=== PATIENT | female | born 1990 | race Caucasian/White ===

== ENCOUNTER → 2018-01-07 14:03 | Outpatient (CLI) | payer MEDICAID, SELFPAY ==
[2018-01-15 11:48] LABS: HPV Reflexed? NOT INDICATED
== END ==
PROVIDERS: Visit Provider Obstetrics & Gynecology
DX: R87.610 Atypical squamous cells of undetermined significance on cytologic smear of cervix (ASC-US) (principal)
CPT/HCPCS: 88175; G0145

== ENCOUNTER → 2018-01-30 10:19 | Outpatient (CLI) | payer MEDICAID, SELFPAY ==
--- NOTE | 2018-01-30 09:30 | CER_PTH ---
PATIENT: NICOLAS DUTTA LOC: [facility] U#:[id number] AGE/SX: 35/F ROOM: RE01/30/[address]: Dr. Julia Masters MD : 1990 BED: DIS: SPEC #: [id number] RECD: 01/30/18 10:40 STATUS: MAGDA ARMAAN #: [id number] CHARLES: 01/30/18 09:[address]: Julia Masters DEPT: SURGICAL PATHOLOGY RECD BY: Vito Tomas Tissues: A - Uterine cervix, NOS Procedures: Surgery Specimen Level IV HEADER OPERATION: Colposcopy PRE-OP DIAGNOSIS: LGSIL pap, LMP 01/09 TISSUE SUBMITTED: ECC MICROSCOPIC DIAGNOSIS ECC: Scant minute fragments of benign endocervical epithelium and mucous, negative for dysplasia. SJ:duy 01/31/18 COMMENT Clinical correlation and appropriate follow up are necessary. MICROSCOPIC DESCRIPTION Slides are reviewed. GROSS DESCRIPTION Received in fixative is one container labeled with the patient's name and designated ECC. The specimen consists of multiple irregular fragments of bennett mucoid tissue that in aggregate measure 0.5 x 0.5 x <0.1 cm. The specimen is totally submitted in one cassette. / SJ:rg 01/30/18 TC:4 CPT: 16087
== END ==
PROVIDERS: Visit Provider Obstetrics & Gynecology
DX: R87.612 Low grade squamous intraepithelial lesion on cytologic smear of cervix (LGSIL) (principal)
CPT/HCPCS: 88305

== ENCOUNTER → 2018-07-10 08:45 | Outpatient (CLI) | payer MEDICAID, SELFPAY ==
--- NOTE | 2018-07-10 09:00 | RAD_ITS ---
STUDY: AIR-CONTRAST UPPER GI SERIES. REASON FOR EXAM: Female, 27 years old. Worsening nausea. FLUOROSCOPY TIME (if supplied): (0:48) minutes/seconds. 23 spot images were obtained. TECHNIQUE: The patient ingested barium. Multiple imaging esophagus, stomach and duodenum were obtained. COMPARISON: None. FINDINGS: The esophagus is unremarkable. There is no evidence of obstruction. No mass lesion is seen. There is no evidence of gastroesophageal reflux. The stomach and duodenum are unremarkable. No evidence of ulceration. No mass lesion is present. RAD/Upper GI Series Only IMPRESSION: Unremarkable upper GI series. Electronically Signed: Иван Bates MD at 8:04 EDT Tel [phone], Service support ,
== END ==
PROVIDERS: Family Provider Family Medicine; PCP Family Medicine; Visit Provider Nurse Practitioner Adult Health
DX: R10.13 Epigastric pain (principal); R11.0 Nausea
CPT/HCPCS: 74246

== ENCOUNTER 2018-08-04 11:43 | Day surgery (SDC) | payer MEDICAID, SELFPAY ==
--- NOTE | 2018-08-04 | EGD_PTH ---
PATIENT: NICOLAS DUTTA LOC: EN U#:[id number] AGE/SX: 27/F ROOM: RE08/04/[address]: Dr. Zita Bennett MD : 1990 BED: DIS: 08/04/2018 SPEC #: [id number] RECD: 08/04/18 14:26 STATUS: MAGDA REJohnathan #: [id number] CHARLES: 08/04/18 00:[address]: Zita Bennett DEPT: SURGICAL PATHOLOGY RECD BY: mC Chavarria ENTERED: 08/04/18 14:27 SP TYPE: EGD BIOPSY OTHR DR: Rose Mary Brown DO Tissues: A - Duodenum, NOS B - Gastric mucous membrane C - Gastric mucous membrane Procedures: Special Stain Group II Surgery Specimen Level IV Alcian Blue/PAS (control) HEADER OPERATION: EGD ([facility] [place]) PRE-OP DIAGNOSIS: Epigastric pain TISSUE SUBMITTED: A - Biopsy of second portion of duodenum, B - Antrum biopsy for H. pylori and path, C - GE junction biopsy MICROSCOPIC DIAGNOSIS A. Second portion of duodenum, biopsy: Fragments of small intestinal mucosa, no pathologic diagnosis. B. Antrum, biopsy: Mild gastritis. See microscopic description and comment. C. GE junction, biopsy: A fragment of gastroesophageal mucosa with chronic inflammation. Intestinal metaplasia (goblet cell metaplasia) is not identified. See comment. SJ:rg 08/05/18 COMMENT B. The results of immunohistochemistry for Helicobacter pylori will be reported separately ([id number]). C. Alcian blue/PAS stain with matched control is used in the evaluation of the specimen. MICROSCOPIC DESCRIPTION Slides are reviewed. B. The specimen shows fragments of gastric mucosa with chronic inflammatory cell infiltrates in the lamina propria consisting of lymphocytes and plasma cells, consistent with mild chronic gastritis. GROSS DESCRIPTION A - Received in fixative is one container labeled with the patient's name and designated biopsy of second portion of duodenum. The specimen consists of multiple irregular fragments of light bennett soft tissue that in aggregate measure 1 x 0.3 x 0.1 cm. The specimen is totally submitted in one cassette. B - Received in fixative is one container labeled with the patient's name and designated antrum biopsy for H. pylori and path. The specimen consists of two irregular fragments of light bennett soft tissue that in aggregate measure 0.6 x 0.3 x 0.1 cm. The specimen is totally submitted in one cassette. C - Received in fixative is one container labeled with the patient's name and designated GE junction biopsy. The specimen consists of one irregular fragment of light bennett soft tissue that measures 0.4 x 0.2 x 0.1 cm. The specimen is totally submitted in one cassette. / SJ:rg 08/04/18 TC:5 CPT: 22153 x3, 57165
--- NOTE | 2018-08-04 | IMM_PTH ---
PATIENT: NICOLAS DUTTA LOC: [facility] U#:[id number] AGE/SX: 27/F ROOM: RE08/04/[address]: Dr. Zita Bnenett MD : 1990 BED: DIS: 08/04/2018 SPEC #: [id number] RECD: 08/04/18 14:05 STATUS: MAGDA REQ #: [id number] CHARLES: 08/04/18 00:[address]: Zita Bennett DEPT: IMMUNOHISTOCHEMISTRY RECD BY: Zaira Garcia ENTERED: 08/04/18 14:05 SP TYPE: IMMUNO OTHR DR: Rose Mary Brown DO Tissues: B - Stomach, NOS Procedures: H Pylori (initial) PHYSICIAN & INSTITUTION [place] [id number] SPECIMEN INFORMATION: Tissue Source: B - Antrum biopsy Clinical Info: Epigastric pain Specimen Number: [id number] CPT code: 53688 METHODOLOGY: Deparaffinized sections of prefer/formalin-fixed tissue or PAP/DQ stained slides are incubated with monoclonal/polyclonal antibodies/oligonucleotide probes. Localization is made via biotin free immunoperoxidase method. Appropriate controls are performed and reacted as expected. Results on target cell population are indicated in the following table: RESULTS: ANTIBODY / CLONE RESULT Block B H Pylori (polyclonal) negative These tests were developed and their performance characteristics determined by [facility]. They may not have been cleared or approved by the [place]. Food and Drug Administration. The FDA has determined that such clearance or approval is not necessary. INTERPRETATION: B. Antrum, biopsy: Negative for Helicobacter pylori organisms. SJ:duy 08/05/18
[2018-08-04 12:28] VITALS: BP 106/78; PULSE 96; RESP 14; TEMP 36.8; O2SAT 100; BMI 19.8
[2018-08-04 12:33] LABS: Internal QC Validated? YES +Cl - CLEAR BKGD; Pregnancy, Urine Negative Negative
[2018-08-04 13:15] VITALS: BP 106/78; BP 92/53; PULSE 75; RESP 16; TEMP 36.2; O2SAT 96
[2018-08-04 13:20] VITALS: BP 106/78; BP 96/84; PULSE 85; RESP 16; O2SAT 99
--- NOTE | 2018-08-04 13:23 | PCM.OPRPT ---
Report of Operation Date of Procedure: 08/04/18 Pre-Operative Diagnosis: epigastric abdominal pain Post-Operative Diagnosis: no ulcers/masses noted Surgery/Procedure Performed:: esophagogastroduodenoscopy with biopsies Description of Surgical Findings:: no ulcers or masses noted in the stomach, first and second portion of the duodenum, esophagus Type of Anesthesia:: MAC Anesthesiologist: Ilya Farnsworth Specimen's removed: mucosal biopsies of the following: second portion of the duodenum and antrum of stomach, and GE junction Estimated Blood Loss (mL): minimal Fluids Replaced: see anesthesia note Description of Procedure: After informed consent was given, the patient was brought to the endoscopy suite and placed in the upright sitting position. Appropriate time out protocol was followed. Appropriate cardiac, blood pressure, and pulse oximetry monitoring was placed. After stable vital signs were noted, the patient was given intravenous conscious sedation. The posterior pharynx was sprayed with lidocaine spray times two and a bite block was placed. The patient was then placed in the left lateral decubitis position. The upper endoscope was lubricated and inserted into the patient?s mouth and then carefully placed into the patient?s throat. The patient was asked to swallow and the endoscope was then easily advanced into the patient?s esophagus. The endoscope was further advanced down into the patient?s stomach, then past the pylorus, then past the duodenal bulb and then to the second portion of the duodenum. There were no lesions noted in the duodenum. The first and second portion of the duodenum was evaluated. Because of the patient's complaint, mucosal biopsies of the second portion of the duodenum were taken with cold grasper forceps. The endoscope was then retracted back into the stomach. Cold grasper forceps were used to take biopsies of the antrum mucosa. A retroflex view of the stomach revealed no evidence of any masses. No ulcers, no strictures, no suspicious lesions were noted. The patient did have a small hiatal hernia. The endoscope was retracted into the esophagus. The gastroesophageal junction appeared minimally irregular - cold grasper forceps were used to take mucosal biopsies of the GE junction. The remainder of the esophagus was normal. The upper endoscope was removed intact. Patient tolerated procedure well. - Complications none noted
[2018-08-04 13:25] VITALS: BP 106/78; BP 89/54; PULSE 75; RESP 16; O2SAT 100
[2018-08-04 13:26] VITALS: BP 106/78; BP 99/66; PULSE 65; RESP 16; TEMP 36.3; O2SAT 99
[2018-08-04 13:53] VITALS: BP 106/78
== END 2018-08-04 13:56 | disposition home or self-care (01) ==
LOC: EN 11:44 → AC 12:20
PROVIDERS: Family Provider Family Medicine; PCP Family Medicine; Referring Provider Surgery; Visit Provider Surgery
PROC: 0DJ08ZZ Inspection of Upper Intestinal Tract, Via Natural or Artificial Opening Endoscopic (ICD-10-PCS; CPT 43235; principal; 2018-08-04 12:40)
DX: K29.70 Gastritis, unspecified, without bleeding (principal); K21.0 Gastro-esophageal reflux disease with esophagitis; K44.9 Diaphragmatic hernia without obstruction or gangrene; R11.0 Nausea; J45.909 Unspecified asthma, uncomplicated; Z79.899 Other long term (current) drug therapy; F17.200 Nicotine dependence, unspecified, uncomplicated
CPT/HCPCS: 43235; 81025; 88305; 88313; 88342; J7120; J2405

== ENCOUNTER → 2018-08-12 15:26 | Outpatient (CLI) | payer MEDICAID, SELFPAY ==
[2018-08-12 17:52] LABS: Chlamydia Trachomatis by PCR Negative (Negative); Neisserai gonorrhoeae by PCR Negative (Negative); Probe Check PASS; Sample Adequacy Control PASS; Specimen Processing Control PASS
[2018-08-19 11:55] LABS: HPV Reflexed? NOT INDICATED
== END ==
PROVIDERS: Visit Provider Obstetrics & Gynecology
DX: Z12.4 Encounter for screening for malignant neoplasm of cervix (principal); Z11.3 Encounter for screening for infections with a predominantly sexual mode of transmission
CPT/HCPCS: 87491; 87591; 88175; G0145

== ENCOUNTER → 2018-09-17 16:21 | Outpatient (CLI) | payer MEDICAID, SELFPAY ==
[2018-09-17 17:57] LABS: hCG Titer Quant., Serum 979 mIU/mL (<9 non-preg)
--- OUTSIDE RECORDS SUMMARY | 2018-11-13 02:37 | XMS RPT_ITS ---
:1990 Author Organization OHIP Care Team Providers Name Role Phone KAREN BROWN DO Attending Unavailable KAREN BROWN DO Primary Care Unavailable THORCARRIE, NORMA (FASHION COORDINATOR) Attending Unavailable THORPE, NORMA (FASHION COORDINATOR) Attending Unavailable THORPE, NORMA (FASHION COORDINATOR) Referring Unavailable THORCARRIE, NORMA (FASHION COORDINATOR) Referring Unavailable Julia Masters Attending Unavailable Julia Masters Attending Unavailable NORMA CARTY Attending Unavailable CHARLEEN NORMA Referring Unavailable Karen Brown Primary Care Unavailable Zita Bennett Attending Unavailable Zita Bennett Referring Unavailable Karen Brown Primary Care Unavailable Julia Masters Attending Unavailable Julia Masters Attending Unavailable Julia Masters Attending Unavailable PROBLEMS PROBLEMS DATE TYPE CONDITION / CODE ATTENDING STATUS SOURCE 2018 Unknown Z12.4 - Encounter Julia Masters Active [facility] for screening for Community malignant neoplasm [facility] / Repository Z12.4(ICD-10) 2018 Unknown Z11.3 - Encounter Julia Masters Active [facility] for screening for Community infections with a Hospital predominantly Repository sexual mode of transmission / Z11.3(ICD-10) 01/17/2015 Active Nausea / NA Active [facility] R11.0(ICD-10) [facility] [place] Repository 07/17/2018 Active Epigastric pain / NA Active [facility] R10.13(ICD-10) [facility] [place] Repository 07/17/2018 Active Abdominal NA Active [facility] distension [facility] (gaseous) / [place] R14.0(ICD-10) Repository 01/29/2018 Unknown R87.610 - Atypical Julia Masters Active [facility] squamous cells of Community undetermined Hospital significance on Repository cytologic smear of cervix (ASC-US) / R87.610(ICD-10) 11/12/2017 Admitting Gastro-esophageal BROWN DO, Active [facility] Diagnosis reflux disease KAREN [facility] without esophagitis Repository / K21.9(ICD-10) PROCEDURES PROCEDURES No Procedure Records FoundRESULTS RESULTS [facility] Observed: 09/30/2018 Status: COMPLETED Source: [place] 12:00 AM [facility] REPOSITORY Letter Text Department of Gastroenterology [address] [place], [place] [address] 09/30/2018 Nicolas Dougherty [address] [facility] [address] [facility] [address] Dear Nicolas, We are unable to reach you by phone, so mailing a letter RE: received a medication refill request on Ondansetron from your pharmacy. This has been denied. You will need to be seen in if still experiencing nausea. Call [phone] to schedule apt with LYSSA Martinez. Sincerely, LYSSA Joyner/Chelsea Gannon LPN HCG TITER QUANT., Collected: 09/19/2018 Status: F Source: [place] 9:19 AM [facility] [place] TYPE CODE TESTS RESULT OUT OF RANGE REFERENCE UNITS LAB L700.8000 <9 non-preg mIU/mL High HCG 2550 QUANT. Performed By: #### L700.8000 #### [facility] [address] [place], [address] HCG TITER QUANT., Collected: 09/17/2018 Status: F Source: [place] 4:27 PM [facility] [place] TYPE CODE TESTS RESULT OUT OF RANGE REFERENCE UNITS LAB L700.8000 <9 non-preg mIU/mL High HCG 979 QUANT. Performed By: #### L700.8000 #### [facility] [address] [place], [address] CT/NG [facility] BY PCR Collected: 2018 Status: F Source: [place] 2:30 PM [facility] [place] TYPE CODE TESTS RESULT OUT OF RANGE REFERENCE UNITS LAB L8200.2100 Negative Normal Chlam Negative Trac PCR LAB L8200.2200 Negative Normal NG by Negative PCR Performed By: #### L8200.2000 #### [facility] [address] 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 of containers..01 ThinPrep Vial TYPE CODE TESTS RESULT OUT OF REFERENCE UNITS RANGE LAB L7400.0800 . High DIAGN Comment Result Comment: EPITHELIAL CELL ABNORMALITY. LOW-GRADE SQUAMOUS INTRAEPITHELIAL LESION (LGSIL); MILD DYSPLASIA IS PRESENT. LAB L7400.0900 . Normal ADEQ Comment Result Comment: Satisfactory for evaluation. Endocervical and/or squamous metaplastic cells (endocervical component) are present. LAB L7400.1400 . Normal PERFORM Comment Result Comment: Mirtha Mcfarlane, Fiberglass Bonding Machine Tender (ASCP) LAB L7400.1700 . Normal SIGN Comment Result Comment: Jad Pavon MD (Charles), Pathologist LAB L7400.1720 . Normal Path prov. Comment ICD9 Result Comment: R87.612 LAB L7400.2575 . Normal TEST METHOD Comment Result Comment: This liquid based ThinPrep(R) pap test was screened with the use of an image guided system. LAB L7400.2600 . Normal . COMM LAB L7400.2700 . Normal PAPSMR Comment Result Comment: The Pap smear is a screening test designed to aid in the detection of premalignant and malignant conditions of the uterine cervix. It is not a diagnostic procedure and should not be used as the sole means of detecting cervical cancer. Both false-positive and false-negative reports do occur. LAB L7400.2800 . Normal HPV RFLX Comment Result Comment: The HPV DNA reflex criteria were not met with this specimen result therefore, no HPV testing was performed. Performed at: [facility] - [facility] [place] [id number] Refining Machine Operator: Tressa Cronin MD, Phone: [phone] Performed at: [facility] [id number] Refining Machine Operator: Mary Phillips MD, Phone: [phone] Performed By: #### L7400.0350 #### [facility] (refer to report for specific site) refer to report for address and phone number OPERATIVE REPORT Observed: 08/10/2018 Status: F Source: [place] 9:27 AM [facility] Medical Records Department [address] [place] [address] Operative Report 08/04/18 1323 MR#: [id number] Acct: [id number] Name: TYRONNICOLAS WALLACE Jo Ann Rep #: [id number] : 1990 27 From: Zita Bennett MD PCP: Karen Brown DO Status: [facility] Y Location: EN Report of Operation Date of Procedure: 08/04/18 Pre-Operative Diagnosis: epigastric abdominal pain Post-Operative Diagnosis: no ulcers/masses noted Surgery/Procedure Performed:: esophagogastroduodenoscopy with biopsies Description of Surgical Findings:: no ulcers or masses noted in the stomach, first and second portion of the duodenum, esophagus Type of Anesthesia:: MAC Anesthesiologist: Ilya Farnsworth Specimen's removed: mucosal biopsies of the following: second portion of the duodenum and antrum of stomach, and GE junction Estimated Blood Loss (mL): minimal Fluids Replaced: see anesthesia note Description of Procedure: After informed consent was given, the patient was brought to the endoscopy suite and placed in the upright sitting position. Appropriate time out protocol was followed. Appropriate cardiac, blood pressure, and pulse oximetry monitoring was placed. After stable vital signs were noted, the patient was given intravenous conscious sedation. The posterior pharynx was sprayed with lidocaine spray times two and a bite block was placed. The patient was then placed in the left lateral decubitis position. The upper endoscope was lubricated and inserted into the patient s mouth and then carefully placed into the patient s throat. The patient was asked to swallow and the endoscope was then easily advanced into the patient s esophagus. The endoscope was further advanced down into the patient s stomach, then past the pylorus, then past the duodenal bulb and then to the second portion of the duodenum. There were no lesions noted in the duodenum. The first and second portion of the duodenum was evaluated. Because of the patient's complaint, mucosal biopsies of the second portion of the duodenum were taken with cold grasper forceps. The endoscope was then retracted back into the stomach. Cold grasper forceps were used to take biopsies of the antrum mucosa. A retroflex view of the stomach revealed no evidence of any masses. No ulcers, no strictures, no suspicious lesions were noted. The patient did have a small hiatal hernia. The endoscope was retracted into the esophagus. The gastroesophageal junction appeared minimally irregular - cold grasper forceps were used to take mucosal biopsies of the GE junction. The remainder of the esophagus was normal. The upper endoscope was removed intact. Patient tolerated procedure well. - Complications none noted 08/10/18 0927 <Electronically signed by Zita Bennett MD> Date Zita Bennett MD CC: Karen Brown DO; Zita Bennett MD Signed ,URINE Collected: 08/04/2018 Status: F Source: [place] 12:22 PM [facility] [place] TYPE CODE TESTS RESULT OUT OF REFERENCE UNITS RANGE LAB L400.8000 Negative Normal HCGUQUAL Negative Result Comment: Very dilute urine specimens, as indicated by a low specific gravity, may not contain employee representative levels of hCG. If is still suspected, a first morning urine specimen should be collected 48 hours later and tested. Performed By: #### L400.7600 #### [facility] [address] [place] [address]. [place], [place], [address] IMMUNOHISTOCHEMISTRY Observed: 08/04/2018 Status: F Source: [place] 12:00 AM [facility] [place] Patient: NICOLAS DOUGHERTY N : 1990 () Acct Num: [id number] Phys: Zita Bennett MD Unit Num: [id number] Loc: EN Specimen: [id number] Received: 08/04/181404 Spec Type: IMMUNO TISSUES 1 TISSUES: B. Stomach, NOS SPECIMEN INFORMATION: Tissue Source: B - Antrum biopsy Clinical Info: Epigastric pain Specimen Number: [id number] CPT code: 72134 METHODOLOGY: Deparaffinized sections of prefer/formalin-fixed tissue or PAP/DQ stained slides are incubated with monoclonal/polyclonal antibodies/oligonucleotide probes. Localization is made via biotin free immunoperoxidase method. Appropriate controls are performed and reacted as expected. Results on target cell population are indicated in the following table: RESULTS: ANTIBODY / CLONE RESULT Block B H Pylori (polyclonal) negative These tests were developed and their performance characteristics determined by [facility]. They may not have been cleared or approved by the U.S. Food and Drug Administration. The FDA has determined that such clearance or approval is not necessary. INTERPRETATION: B. Antrum, biopsy: Negative for Helicobacter pylori organisms. SJ:duy 08/05/18 PHYSICIAN AND INSTITUTION [address] [address] Signed Rene Sabillon 08/05/18 <signature on file> Performed By: #### PIMM #### [facility] [address] [place] [address]. [place], [place], [id number] EGD ([facility]) Observed: 08/04/2018 Status: F Source: [place] 12:00 AM [facility] [place] Patient: NICOLAS DOUGHERTY : 1990 () Acct Num: [id number] Phys: Donald ARREDONDO,Zita Unit Num: [id number] Loc: EN Specimen: [id number] Received: 08/04/181425 Spec Type: EGD BIOPSY TISSUES 1 TISSUES: A. Duodenum, NOS B. Gastric mucous membrane C. Gastric mucous membrane COMMENT B. The results of immunohistochemistry for Helicobacter pylori will be reported separately ([id number]). C. Alcian blue/PAS stain with matched control is used in the evaluation of the specimen. GROSS DESCRIPTION A - Received in fixative is one container labeled with the patient's name and designated biopsy of second portion of duodenum. The specimen consists of multiple irregular fragments of light bennett soft tissue that in aggregate measure 1 x 0.3 x 0.1 cm. The specimen is totally submitted in one cassette. B - Received in fixative is one container labeled with the patient's name and designated antrum biopsy for H. pylori and path. The specimen consists of two irregular fragments of light bennett soft tissue that in aggregate measure 0.6 x 0.3 x 0.1 cm. The specimen is totally submitted in one cassette. C - Received in fixative is one container labeled with the patient's name and designated GE junction biopsy. The specimen consists of one irregular fragment of light bennett soft tissue that measures 0.4 x 0.2 x 0.1 cm. The specimen is totally submitted in one cassette. / ABIDA:duy 08/04/18 TC:5 CPT: 94509 x3, 36062 HEADER OPERATION: EGD ([facility]) PRE-OP DIAGNOSIS: Epigastric pain TISSUE SUBMITTED: A - Biopsy of second portion of duodenum, B - Antrum biopsy for H. pylori and path, C - GE junction biopsy MICROSCOPIC DESCRIPTION Slides are reviewed. B. The specimen shows fragments of gastric mucosa with chronic inflammatory cell infiltrates in the lamina propria consisting of lymphocytes and plasma cells, consistent with mild chronic gastritis. MICROSCOPIC DIAGNOSIS A. Second portion of duodenum, biopsy: Fragments of small intestinal mucosa, no pathologic diagnosis. B. Antrum, biopsy: Mild gastritis. See microscopic description and comment. C. GE junction, biopsy: A fragment of gastroesophageal mucosa with chronic inflammation. Intestinal metaplasia (goblet cell metaplasia) is not identified. See comment. ABIDA:duy 08/05/18 Signed Rene Sabillon 08/05/18 <signature on file> Performed By: #### PEGD #### [facility] [address] [place], [address] CBC Collected: 07/17/2018 Status: F Source: [place] 9:01 AM [facility] REPOSITORY TYPE CODE TESTS RESULT OUT OF REFERENCE UNITS RANGE LAB WBC 3.70-11.00 k/uL WBC 6.75 LAB RBC 3.90-5.20 m/uL RBC 4.55 LAB HGB 11.5-15.5 g/dL Hemoglobin 14.2 LAB HCT 36.0-46.0 % Hematocrit 43.2 LAB MCV 80.0-100.0 fL MCV 94.9 LAB MCH 26.0-34.0 pG MCH 31.2 LAB MCHC 30.5-36.0 g/dL MCHC 32.9 LAB RDWCV 11.5-15.0 % RDW-CV 13.0 LAB PLTCT 150-400 k/uL Platelet Count 352 LAB MPV 9.0-12.7 fL MPV 9.8 LAB ABSNUC <0.01 k/uL Absolute nRBC <0.01 Performed By: #### CBC, CMP, LIPA #### [facility] [address] [place], [place] [address] COMP METABOLIC PANEL Collected: 07/17/2018 Status: F Source: [place] 9:01 AM [facility] REPOSITORY TYPE CODE TESTS RESULT OUT OF REFERENCE UNITS RANGE LAB TP 6.3-8.0 g/dL Protein, Total 6.4 LAB ALB 3.9-4.9 g/dL Albumin 4.4 LAB CA 8.5-10.2 mg/dL Calcium, Total 9.2 LAB TBIL 0.2-1.3 mg/dL Bilirubin, Total 0.6 LAB ALKP 34-123 U/L Alkaline Phosphatase 66 LAB AST 13-35 U/L AST 15 LAB GLU 74-99 mg/dL Low Glucose 71 Result Comment: The [place] [employer] (ADA) provides guidance for cutoff values for fasting glucose and random glucose. The ADA defines fasting as no caloric intake for at least 8 hours. Fas ting plasma glucose results between 100 to 125 mg/dL indicate increased risk for diabetes (prediabetes). Fasting plasma glucose results greater than or equal to 126 mg/dL meet the criteria for diagnosis of diabetes. In the absence of unequivocal hyperglycemia, results should be confirmed by repeat testing. In a patient with classic symptoms of hyperglycemia or hyperglycemic crisis, random plasma glucose results greater than or equal to 200 mg/dL meet the criteria for diagnosis of diabetes. Reference: Standards of Medical Care in Diabetes 2016, [place] [employer]. Diabetes Care. 2016.39(Suppl 1). LAB BUN 7-21 mg/dL BUN 13 LAB CRET 0.58-0.96 mg/dL Creatinine 0.80 LAB NA 136-144 mmol/L Sodium 139 LAB K 3.7-5.1 mmol/L Potassium 4.3 LAB CL 97-105 mmol/L Chloride 101 LAB CO2 22-30 mmol/L CO2 24 LAB AGAP 9-18 mmol/L Anion Gap 14 LAB ALT 7-38 U/L ALT 8 LAB GFRAA eGFR- Amer. >60 LAB GFRNAA . eGFR-All Other Races >60 Result Comment: eGFR (Estimated GFR) Units of measure: mL/min/1.73 meters squared eGFR is derived from the reexpressed MDRD Study equation using the following parameters: serum creatinine, age, gender and race. The creatinine assay has been calibrated to be traceable to IDMS. An eGFR <60 mL/min/1.73m2 for >3 months is consistent with chronic kidney disease. Refer to KDOQI guidelines for clinical interpretation. In patients with unstable renal function, e.g. those with acute kidney injury, the eGFR may not accurately reflect actual GFR. Performed By: #### CBC, CMP, LIPA #### [facility] [employer] [address] [place], [place] [address] LIPASE Collected: 07/17/2018 Status: F Source: [place] 9:01 AM [facility] REPOSITORY TYPE CODE TESTS RESULT OUT OF REFERENCE UNITS RANGE LAB LIPA 16-61 U/L Lipase 32 Performed By: #### CBC, CMP, LIPA #### [facility] [employer] [address] [place], [place] [address] PROGRESS Observed: 07/16/2018 Status: COMPLETED Source: [place] 9:23 AM [facility] REPOSITORY HNO ID: [id number] Author: Norma Carty Service: (none) Author Type: Nurse Practitioner Type: Progress Notes Filed: 07/16/2018 3:24 PM Note Text: Nicolas Dougherty a 27 year old female who is returning for follow up regarding nausea and epigastric pain. I saw the patient in consultation on 07/07/18. That note has been reviewed. UGI 07/10/18: REASON FOR EXAM: Female, 27 years old. Worsening nausea. FLUOROSCOPY TIME (if supplied): (0:48) minutes/seconds. 23 spot images were obtained. TECHNIQUE: The patient ingested barium. Multiple imaging esophagus, stomach and duodenum were obtained. COMPARISON: None. FINDINGS: The esophagus is unremarkable. There is no evidence of obstruction. No mass lesion is seen. There is no evidence of gastroesophageal reflux. The stomach and duodenum are unremarkable. No evidence of ulceration. No mass lesion is present. RAD/Upper GI Series Only IMPRESSION: Unremarkable upper GI series. I have reviewed the report with the patient. The patient was seen by Dr. Mcdonnell for upper endoscopy 09/09/13 due epigastric pain and nausea. The procedure report has been reviewed and findings as follows: Impression: ? ?- Normal esophagus. ? - Normal stomach. Biopsied. ? - Normal examined duodenum. ? FINAL DIAGNOSIS Antrum, biopsy - Chronic inactive gastritis. - Helicobacter pylori immunostain with appropriate control is negative. HPI: The patient presents today reporting that she continues with nearly constant nausea. Intermittent epigastric pain. Reports postprandial bloating and gassiness. Minimal dairy. Slight relief with omeprazole. Declines increased dose. US and HIDA scan were negative in the past. Agreeable to EGD provided she can be knocked out. The patient denies diarrhea or black stool. Does report the postprandial bloating and gassiness. REVIEW OF SYSTEMS: GENERAL: No weight loss, malaise or fevers Last 6 Encounter Wt Readings: Date: Wt: 07/16/2018 54.9 kg (121 lb) 07/07/2018 54.9 kg (121 lb) 03/07/2016 54 kg (119 lb) 11/23/2015 56.7 kg (125 lb) 01/17/2015 57.2 kg (126 lb 3.2 oz) 11/02/2014 59 kg (130 lb) HEENT: Negative for frequent or significant headaches, No changes in hearing or vision, no nose bleeds or other nasal problems RESPIRATORY: Negative for cough, hemoptysis, wheezing, COPD, dyspnea or shortness of breath CARDIOVASCULAR: Negative for chest pain, leg swelling, hypertension, CHF or palpitations GI: The patient states that her appetite has been adequate. She does not get hungry. There has been nausea, occasional vomiting. She denies dysphagia and denies odynophagia. There has been indigestion with heartburn. There has not been regurgitation. Bowel habits have been regular. There has not been diarrhea. There has not been constipation. The patient denies rectal bleeding. There has not been melena. No new or worsening abdominal pain. 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 LMP: 07/07/18. PSYCH: Positive for anxiety: regarding illness and fear of procedure. HEMATOLOGY/LYMPHOLOGY Negative for prolonged bleeding, bruising easily or swollen nodes ENDOCRINE: Negative for cold or heat intolerance, polyuria, polydipsia and goiter NEURO: No history of headaches, syncope, paralysis, seizures or tremors All other reviewed and negative other than HPI. PAST MEDICAL HISTORY Diagnosis Date - Anxiety - Asthma - Nausea PAST SURGICAL HISTORY Procedure Laterality Date - COLONOSCOP W/ OR W/O [facility] SPEC 06/19/2013 Colonoscopy - EGD W/O OR W/BRUSH/WASH 09/09/13 EGD - ORAL SURGERY PROCEDURE - ORAL SURGERY PROCEDURE - ORAL SURGERY PROCEDURE FAMILY HISTORY Problem Relation Age of Onset - Heart Other Current Outpatient Prescriptions: ranitidine (ZANTAC) 150 mg tablet Take 1 tablet by mouth DAILY AT 6 PM. Disp: 30 tablet Rfl: 3 omeprazole (PRILOSEC) 20 mg capsule Take 1 capsule by mouth once daily. Disp: 30 capsule Rfl: 4 MULTIVITAMIN ORAL Take 1 tablet by mouth once daily. Disp: Rfl: calcium carbonate (TUMS) 500 mg Chew Take 1 tablet by mouth as needed. Disp: Rfl: albuterol HFA (PROAIR HFA) 90 mcg/actuation inhaler Inhale 2 Puffs as instructed as needed. Disp: Rfl: fluticasone (FLOVENT HFA) 110 mcg/actuation inhaler Inhale 2 Puffs as instructed twice daily. Disp: Rfl: No current facility-administered medications for this visit. SOCIAL HISTORY: Patient is a single parent. She quit smoking 7 years ago and reports her alcohol use as never. PHYSICAL EXAMINATION: Blood pressure 107/65, pulse 98, height 165.1 cm (5' 5), weight 54.9 kg (121 lb), last menstrual period 07/07/2018. General Appearance: Well appearing, alert, in no acute distress. Skin: Skin color, texture, turgor normal, no suspicious rashes or lesions. Head: Normocephalic, no masses, lesions or abnormalities. Eyes: Anicteric sclera. Pupils are equally round and reactive to light. Extraocular movements are intact. Oropharynx: edentulous. Lips, mucosa, and tongue normal, oropharynx normal. Neck: Supple, no adenopathy; thyroid symmetric, normal size, no bruits. Lungs: Lungs clear to auscultation. No wheezing, rhonchi, rales. Heart: RRR without murmur. Abdomen:Bowel sounds normal. Abdomen soft. Epigastric tenderness. Non-tender otherwise. No masses, organomegaly. Extremities: No deformities, edema, skin discoloration, clubbing or cyanosis. Peripheral Pulses: Normal. Neurologic: Gait normal. Sensation grossly intact. Impression: chronic gastritis Plan: Continue omeprazole - declines increase until after procedure. Add simethicone and refill Zofran. Labs. The patient is scheduled for upper endoscopy. She would require MAC due to anxiousness (prior was also with MAC). Preparation for the procedure and the procedure itself have been explained in detail. The risks, benefits, anticipated outcomes and possible complications were mentioned. I also explained the procedure in understandable terms and the patient was given printed material concerning the planned procedure. The patient had the opportunity to ask questions concerning the planned procedure. The patient freely consents to the planned procedure. The patient is asked to call with any questions or concerns, or if there is a change in health status between now and the scheduled procedure. I have personally interviewed and examined this patient. I have read the information that the MA documented in this encounter. I spent 30 minutes in the visit, with more than 50% of the total [id number] time of the visit in counseling / coordination of care. Norma Carty RN APRN.ASHELY CNOV Observed: 07/16/2018 Status: COMPLETED Source: [place] 9:00 AM [facility] REPOSITORY [facility] NICOLAS DOUGHERTY ([id number]) 1990 F Date Time Provider Department 07/16/18 9:00 AM NORMA CARTY (FASHION COORDINATOR) [facility] During your visit today, we recorded the following information about you: Pulse Blood pressure Weight Height 98/minute 107/65 54.9 kg 1.651 m Norma Carty RN APRN.LICENSED FUNERAL DIRECTOR 07/16/2018 3:24 PM Signed Nicolas Dougherty a 27 year old female who is returning for follow up regarding nausea and epigastric pain. I saw the patient in consultation on 07/07/18. That note has been reviewed. UGI 07/10/18: REASON FOR EXAM: Female, 27 years old. Worsening nausea. FLUOROSCOPY TIME (if supplied): (0:48) minutes/seconds. 23 spot images were obtained. TECHNIQUE: The patient ingested barium. Multiple imaging esophagus, stomach and duodenum were obtained. COMPARISON: None. FINDINGS: The esophagus is unremarkable. There is no evidence of obstruction. No mass lesion is seen. There is no evidence of gastroesophageal reflux. The stomach and duodenum are unremarkable. No evidence of ulceration. No mass lesion is present. RAD/Upper GI Series Only IMPRESSION: Unremarkable upper GI series. I have reviewed the report with the patient. The patient was seen by Dr. Mcdonnell for upper endoscopy 09/09/13 due epigastric pain and nausea. The procedure report has been reviewed and findings as follows: Impression: ? ?- Normal esophagus. ? - Normal stomach. Biopsied. ? - Normal examined duodenum. ? FINAL DIAGNOSIS Antrum, biopsy - Chronic inactive gastritis. - Helicobacter pylori immunostain with appropriate control is negative. HPI: The patient presents today reporting that she continues with nearly constant nausea. Intermittent epigastric pain. Reports postprandial bloating and gassiness. Minimal dairy. Slight relief with omeprazole. Declines increased dose. US and HIDA scan were negative in the past. Agreeable to EGD provided she can be knocked out. The patient denies diarrhea or black stool. Does report the postprandial bloating and gassiness. REVIEW OF SYSTEMS: GENERAL: No weight loss, malaise or fevers Last 6 Encounter Wt Readings: Date: Wt: 07/16/2018 54.9 kg (121 lb) 07/07/2018 54.9 kg (121 lb) 03/07/2016 54 kg (119 lb) 11/23/2015 56.7 kg (125 lb) 01/17/2015 57.2 kg (126 lb 3.2 oz) 11/02/2014 59 kg (130 lb) HEENT: Negative for frequent or significant headaches, No changes in hearing or vision, no nose bleeds or other nasal problems RESPIRATORY: Negative for cough, hemoptysis, wheezing, COPD, dyspnea or shortness of breath CARDIOVASCULAR: Negative for chest pain, leg swelling, hypertension, CHF or palpitations GI: The patient states that her appetite has been adequate. She does not get hungry. There has been nausea, occasional vomiting. She denies dysphagia and denies odynophagia. There has been indigestion with heartburn. There has not been regurgitation. Bowel habits have been regular. There has not been diarrhea. There has not been constipation. The patient denies rectal bleeding. There has not been melena. No new or worsening abdominal pain. 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 LMP: 07/07/18. PSYCH: Positive for anxiety: regarding illness and fear of procedure. HEMATOLOGY/LYMPHOLOGY Negative for prolonged bleeding, bruising easily or swollen nodes ENDOCRINE: Negative for cold or heat intolerance, polyuria, polydipsia and goiter NEURO: No history of headaches, syncope, paralysis, seizures or tremors All other reviewed and negative other than HPI. PAST MEDICAL HISTORY Diagnosis Date - Anxiety - Asthma - Nausea PAST SURGICAL HISTORY Procedure Laterality Date - COLONOSCOP W/ OR W/O [facility] SPEC 06/19/2013 Colonoscopy - EGD W/O OR W/BRUSH/WASH 09/09/13 EGD - ORAL SURGERY PROCEDURE - ORAL SURGERY PROCEDURE - ORAL SURGERY PROCEDURE FAMILY HISTORY Problem Relation Age of Onset - Heart Other Current Outpatient Prescriptions: ranitidine (ZANTAC) 150 mg tablet Take 1 tablet by mouth DAILY AT 6 PM. Disp: 30 tablet Rfl: 3 omeprazole (PRILOSEC) 20 mg capsule Take 1 capsule by mouth once daily. Disp: 30 capsule Rfl: 4 MULTIVITAMIN ORAL Take 1 tablet by mouth once daily. Disp: Rfl: calcium carbonate (TUMS) 500 mg Chew Take 1 tablet by mouth as needed. Disp: Rfl: albuterol HFA (PROAIR HFA) 90 mcg/actuation inhaler Inhale 2 Puffs as instructed as needed. Disp: Rfl: fluticasone (FLOVENT HFA) 110 mcg/actuation inhaler Inhale 2 Puffs as instructed twice daily. Disp: Rfl: No current facility-administered medications for this visit. SOCIAL HISTORY: Patient is a single parent. She quit smoking 7 years ago and reports her alcohol use as never. PHYSICAL EXAMINATION: Blood pressure 107/65, pulse 98, height 165.1 cm (5' 5), weight 54.9 kg (121 lb), last menstrual period 07/07/2018. General Appearance: Well appearing, alert, in no acute distress. Skin: Skin color, texture, turgor normal, no suspicious rashes or lesions. Head: Normocephalic, no masses, lesions or abnormalities. Eyes: Anicteric sclera. Pupils are equally round and reactive to light. Extraocular movements are intact. Oropharynx: edentulous. Lips, mucosa, and tongue normal, oropharynx normal. Neck: Supple, no adenopathy; thyroid symmetric, normal size, no bruits. Lungs: Lungs clear to auscultation. No wheezing, rhonchi, rales. Heart: RRR without murmur. Abdomen:Bowel sounds normal. Abdomen soft. Epigastric tenderness. Non-tender otherwise. No masses, organomegaly. Extremities: No deformities, edema, skin discoloration, clubbing or cyanosis. Peripheral Pulses: Normal. Neurologic: Gait normal. Sensation grossly intact. Impression: chronic gastritis Plan: Continue omeprazole - declines increase until after procedure. Add simethicone and refill Zofran. Labs. The patient is scheduled for upper endoscopy. She would require MAC due to anxiousness (prior was also with MAC). Preparation for the procedure and the procedure itself have been explained in detail. The risks, benefits, anticipated outcomes and possible complications were mentioned. I also explained the procedure in understandable terms and the patient was given printed material concerning the planned procedure. The patient had the opportunity to ask questions concerning the planned procedure. The patient freely consents to the planned procedure. The patient is asked to call with any questions or concerns, or if there is a change in health status between now and the scheduled procedure. I have personally interviewed and examined this patient. I have read the information that the MA documented in this encounter. I spent 30 minutes in the visit, with more than 50% of the total [id number] time of the visit in counseling / coordination of care. Norma Carty RN SURFACE WATER TECHNICIAN.ASHELY Carty RN APRN.ASHELY 07/16/2018 9:42 AM Signed Continue current medications. Start the gas pill, taking 2 with every meal. Please follow the instructions for upper endoscopy. Your procedure will be with Dr. Bennett, with the deeper sedation we call MAC. Please call the recruiting scheduler (Lan), at the number provided, to schedule your procedure. The endoscopy staff will call you the day before the procedure, to give you specifics on time. (Saturday for a Saturday procedure) Referring Provider: NORMA CARTY (TINY) [[id number]] Allergies As of Date: 07/16/2018 Noted Allergy Reaction PAXIL (PAROXETINE HCL) 11/23/2015 5 - Intolerance SEASONAL ALLERGIES 07/07/2018 16 - Unknown Date Reviewed: 07/16/2018 Reviewed by: Joya Brown Ma - Fully Assessed Reason for Visit: Discuss EGD [Other] Primary Visit Diagnosis:Epigastric pain [R10.13] Other Visit Diagnoses:Nausea [R11.0] Postprandial abdominal bloating [R14.0] Order(s):EGD GEN ANES [5377344] Order #: [id number] FUTURE omeprazole (PRILOSEC) 20 mg capsuleTake 1 capsule by mouth once daily.Disp: 30 capsuleRfl: 4 Simethicone 125 mg chewable tabletChew 2 tablets with each meal.Disp: 180 tabletRfl: 3 ondansetron orally disintegrating (ZOFRAN ODT) 4 mg disintegrating tabletTake 1 tablet by mouth every 8 hours as needed.Disp: 40 tabletRfl: 1 COMP METABOLIC PANEL [SQCMP] Order #: [id number] FUTURE CBC [SQCBC] Order #: [id number] FUTURE LIPASE BLD [SQLIPA] Order #: [id number] FUTURE Prescriptions as of 07/16/2018 Sig: OMEPRAZOLE 20 MG CAPSULE,JORGE LUIS* Take 1 capsule by mouth once * SIMETHICONE 125 MG CHEWABLE T* Chew 2 tablets with each meal. ONDANSETRON 4 MG DISINTEGRATI* Take 1 tablet by mouth every * RANITIDINE 150 MG TABLET Take 1 tablet by mouth DAILY * MULTIVITAMIN ORAL Take 1 tablet by mouth once d* CALCIUM CARBONATE 200 MG CALC* Take 1 tablet by mouth as nee* ALBUTEROL SULFATE HFA 90 MCG/* Inhale 2 Puffs as instructed * FLUTICASONE 110 MCG/ACTUATION* Inhale 2 Puffs as instructed * Problem List As Of Date 07/16/2018 Noted Resolved Nausea [R11.0] Other instructions from your clinician: Continue current medications. Start the gas pill, taking 2 with every meal. Please follow the instructions for upper endoscopy. Your procedure will be with Dr. Bennett, with the deeper sedation we call MAC. Please call the recruiting scheduler (Lan), at the number provided, to schedule your procedure. The endoscopy staff will call you the day before the procedure, to give you specifics on time. (Saturday for a Saturday procedure) Prescriptions ordered this encounter Disp Refills Start End OMEPRAZOLE 20 MG CAPSULE,DELAYED REL* 30 c* 4 07/16/2018 Route: ORAL Sig: Take 1 capsule by mouth once daily. SIMETHICONE 125 MG CHEWABLE TABLET 180 * 3 07/16/2018 Sig: Chew 2 tablets with each meal. ONDANSETRON 4 MG DISINTEGRATING TABL* 40 t* 1 07/16/2018 Route: ORAL Sig: Take 1 tablet by mouth every 8 hours as needed. Medications Discontinued During This Encounter omeprazole (PRILOSEC) 20 mg capsule 30 c* 4 12/29/2015 07/16/2018 Route: ORAL Sig: Take 1 capsule by mouth once daily. Disc: Reason for discontinue is not on file. Encounter Status:Closed by NORMA CARTY CNP on 07/16/18 UPPER GI SERIES Observed: 07/10/2018 Status: F Source: [place] ONLY 8:52 AM [facility] [place] [facility] Imaging Services [address] [place] [address] Upper GI Series Only MR#: [id number] Acct: [id number] Name: NICOLAS DOUGHERTY Rep #: [id number] : 1990 F 27 From: Иван Bates MD PCP: Karen Brown DO Status: REG CLI Study: Upper GI Series Only Date of Exam: 07/10/18 Exam# [id number] Ordering Dr: Norma Carty STUDY: AIR-CONTRAST UPPER GI SERIES. REASON FOR EXAM: Female, 27 years old. Worsening nausea. FLUOROSCOPY TIME (if supplied): (0:48) minutes/seconds. 23 spot images were obtained. TECHNIQUE: The patient ingested barium. Multiple imaging esophagus, stomach and duodenum were obtained. COMPARISON: None. FINDINGS: The esophagus is unremarkable. There is no evidence of obstruction. No mass lesion is seen. There is no evidence of gastroesophageal reflux. The stomach and duodenum are unremarkable. No evidence of ulceration. No mass lesion is present. RAD/Upper GI Series Only IMPRESSION: Unremarkable upper GI series. Electronically Signed: Иван Bates MD at 8:04 EDT Tel [phone], Service support , CC: NORMA CARTY; Kraen Brown DO Track Repair Person: Signed HISTORY PHYSICAL Observed: 07/07/2018 Status: COMPLETED Source: [place] 3:01 PM [facility] REPOSITORY O ID: [id number] Author: Norma Carty Service: (none) Author Type: Nurse Practitioner Type: HANDP Filed: 07/07/2018 5:27 PM Note Text: Nicolas Dougherty a 27 year old female who is a consultation requested by Dr. Karen Brown for an opinion regarding chronic epigastric pain. My final recommendations will be communicated back to the requesting physician by way of a letter to requesting physician, along with a copy of this office encounter. Dr. Brown has sent copies of multiple office encounters and an Upper GI dated 02/24/16 for review. The patient has been seen previously. I saw the patient in consultation on 01/17/15. That note has been reviewed. The patient was seen by Dr. Mcdonnell for upper endoscopy 09/09/13. The procedure report has been reviewed and findings as follows: Impression: ? ?- Normal esophagus. ? - Normal stomach. Biopsied. ? - Normal examined duodenum. FINAL DIAGNOSIS Antrum, biopsy - Chronic inactive gastritis. - Helicobacter pylori immunostain with appropriate control is negative. The patient was seen by Dr. Mcdonnell for colonoscopy 06/19/13. The procedure report has been reviewed and findings as follows: Findings: ?? ? A localized area of mildly ulcerated mucosa (apthie) was found in the ?? ? transverse colon. Biopsies were taken with a cold forceps for histology. Impression: ?- Ulcerated mucosa in the transverse colon. Biopsied. FINAL DIAGNOSIS Mid transverse colon, biopsy - Minute fragments of colonic mucosa without diagnostic alteration. RUQ US 11/10/13 FINDINGS: ? The liver has a normal echotexture without focal mass. ?No intrahepatic or extrahepatic biliary dilatation is seen. ?The gallbladder is normal without gallstones or wall thickening. ?Limited images of the pancreas and right kidney are unremarkable. IMPRESSION: Negative. HIDA scan 02/16/15: IMPRESSION: 1. ?No scintigraphic evidence of cholecystitis. 2. ?Normal gallbladder ejection fraction. (81%) Presenting complaint: The patient presents today reviewing past experiences. She tells me something is wrong but no one is listening. She tells me my dentist says I'm losing my teeth due to acid. I get pain in the center - pointing to her epigastric region. I am nauseated 95% of the time. I barely eat because I feel worse. Goes on to say I don't eat dairy. Fruits and vegetables make my stomach burn and give me diarrhea. The patient is able to tolerate unsweet tea and water. The patient tells me that she feels worse in the morning. I feel a knot just below my breast bone. She tells me about her hiatal hernia found on the UGI in 2015. She sleeps with the head of the bed flat. I have recommended elevating her head at night to see if that helps. Having a bowel movement in the morning. She notes it's not much but it's a good day if I can go. She tells me most times I'm constipated, but when I do go, it's soft. Taking omeprazole once a day. She tells me that she can't tolerate it twice a day or gets stomach pain. Will add ranitidine for now. REVIEW OF SYSTEMS: GENERAL: Weight loss RESPIRATORY: Reported history of asthma. GI: The patient states that her appetite has been adequate. She does not get hungry. There has been some nausea, some vomiting. She denies dysphagia and denies odynophagia. There has been indigestion without heartburn. There has not been regurgitation. Bowel habits have been regular. There has not been diarrhea. There has partially been constipation. The patient denies rectal bleeding. There has not been melena. Intermittent abdominal pain that is located in the epigastric region. PSYCH: Positive for depression and anxiety. ENDOCRINE: Negative for diabetes or thyroid. All other reviewed and negative other than HPI. PAST MEDICAL HISTORY Diagnosis Date - Anxiety - Asthma - Nausea PAST SURGICAL HISTORY Procedure Laterality Date - COLONOSCOP W/ OR W/O [facility] SPEC 06/19/2013 Colonoscopy - EGD W/O OR W/BRUSH/WASH 09/09/13 EGD - ORAL SURGERY PROCEDURE - ORAL SURGERY PROCEDURE - ORAL SURGERY PROCEDURE FAMILY HISTORY Problem Relation Age of Onset - Heart Other Current Outpatient Prescriptions: dicyclomine (BENTYL) 20 mg tablet Take 1 tablet by mouth three times daily. (Patient not taking: Reported on 07/07/2018 ) Disp: 30 tablet Rfl: 1 omeprazole (PRILOSEC) 20 mg capsule Take 1 capsule by mouth once daily. Disp: 30 capsule Rfl: 4 MULTIVITAMIN ORAL Take 1 tablet by mouth once daily. Disp: Rfl: calcium carbonate (TUMS) 500 mg Chew Take 1 tablet by mouth as needed. Disp: Rfl: albuterol HFA (PROAIR HFA) 90 mcg/actuation inhaler Inhale 2 Puffs as instructed as needed. Disp: Rfl: fluticasone (FLOVENT HFA) 110 mcg/actuation inhaler Inhale 2 Puffs as instructed twice daily. Disp: Rfl: No current facility-administered medications for this visit. SOCIAL HISTORY: Patient is single. She quit smoking 7 years ago and reports her alcohol use as never. PHYSICAL EXAMINATION: Blood pressure 113/68, pulse 87, height 165.1 cm (5' 5), weight 54.9 kg (121 lb), last menstrual period 07/07/2018. General Appearance: Well appearing, alert, in no acute distress. Skin: Skin color, texture, turgor normal, no suspicious rashes or lesions. Head: Normocephalic, no masses, lesions, tenderness or abnormalities. Eyes: Anicteric sclera. Pupils are equally round and reactive to light. Extraocular movements are intact. Oropharynx: Edentulous. Lips, mucosa, and tongue normal, oropharynx normal. Neck: Supple, no adenopathy; thyroid symmetric, normal size. Lungs: Lungs clear to auscultation. No wheezing, rhonchi, rales. Heart: RRR without murmur. Abdomen: Abdomen soft, slight epigastric tenderness to palpation. Non-tender otherwise. Bowel sounds normal. No masses, organomegaly. Extremities: No deformities, edema, skin discoloration, clubbing or cyanosis. Peripheral Pulses: Normal. Neurologic: Gait normal. Reflexes normal and symmetric. Sensation grossly intact. Impression: Hiatal hernia 2)nausea Plan: UGI at [facility]. Continue omeprazole. Add ranitidine each evening while we do the work up. She agrees with this plan. I have personally interviewed and examined this patient. I have reviewed the information that the MA entered for this encounter. I spent 30 minutes in the visit, with greater than 50% of the total [id number]-vb-[id number] time of the visit in counseling and coordination of care. Norma Carty RN APRN.LICENSED FUNERAL DIRECTOR CNOV Observed: 07/07/2018 Status: COMPLETED Source: [place] 2:40 PM [facility] REPOSITORY Office Visit ([facility]) INCOLAS DOUGHERTY ([id number]) 1990 F Date Time Provider Department 07/07/18 2:40 PM NORMA CARTY (FASHION COORDINATOR) [facility] During your visit today, we recorded the following information about you: Pulse Blood pressure Weight Height 87/minute 113/68 54.9 kg 1.651 m Last Period 07/07/18 Norma Carty RN APRN.LICENSED FUNERAL DIRECTOR 07/07/2018 5:27 PM Signed Nicolas Dougherty a 27 year old female who is a consultation requested by Dr. Karen Brown for an opinion regarding chronic epigastric pain. My final recommendations will be communicated back to the requesting physician by way of a letter to requesting physician, along with a copy of this office encounter. Dr. Brown has sent copies of multiple office encounters and an Upper GI dated 02/24/16 for review. The patient has been seen previously. I saw the patient in consultation on 01/17/15. That note has been reviewed. The patient was seen by Dr. Mcdonnell for upper endoscopy 09/09/13. The procedure report has been reviewed and findings as follows: Impression: ? ?- Normal esophagus. ? - Normal stomach. Biopsied. ? - Normal examined duodenum. FINAL DIAGNOSIS Antrum, biopsy - Chronic inactive gastritis. - Helicobacter pylori immunostain with appropriate control is negative. The patient was seen by Dr. Mcdonnell for colonoscopy 06/19/13. The procedure report has been reviewed and findings as follows: Findings: ?? ? A localized area of mildly ulcerated mucosa (apthie) was found in the ?? ? transverse colon. Biopsies were taken with a cold forceps for histology. Impression: ?- Ulcerated mucosa in the transverse colon. Biopsied. FINAL DIAGNOSIS Mid transverse colon, biopsy - Minute fragments of colonic mucosa without diagnostic alteration. RUQ US 11/10/13 FINDINGS: ? The liver has a normal echotexture without focal mass. ?No intrahepatic or extrahepatic biliary dilatation is seen. ?The gallbladder is normal without gallstones or wall thickening. ?Limited images of the pancreas and right kidney are unremarkable. IMPRESSION: Negative. HIDA scan 02/16/15: IMPRESSION: 1. ?No scintigraphic evidence of cholecystitis. 2. ?Normal gallbladder ejection fraction. (81%) Presenting complaint: The patient presents today reviewing past experiences. She tells me something is wrong but no one is listening. She tells me my dentist says I'm losing my teeth due to acid. I get pain in the center - pointing to her epigastric region. I am nauseated 95% of the time. I barely eat because I feel worse. Goes on to say I don't eat dairy. Fruits and vegetables make my stomach burn and give me diarrhea. The patient is able to tolerate unsweet tea and water. The patient tells me that she feels worse in the morning. I feel a knot just below my breast bone. She tells me about her hiatal hernia found on the UGI in 2016. She sleeps with the head of the bed flat. I have recommended elevating her head at night to see if that helps. Having a bowel movement in the morning. She notes it's not much but it's a good day if I can go. She tells me most times I'm constipated, but when I do go, it's soft. Taking omeprazole once a day. She tells me that she can't tolerate it twice a day or gets stomach pain. Will add ranitidine for now. REVIEW OF SYSTEMS: GENERAL: Weight loss RESPIRATORY: Reported history of asthma. GI: The patient states that her appetite has been adequate. She does not get hungry. There has been some nausea, some vomiting. She denies dysphagia and denies odynophagia. There has been indigestion without heartburn. There has not been regurgitation. Bowel habits have been regular. There has not been diarrhea. There has partially been constipation. The patient denies rectal bleeding. There has not been melena. Intermittent abdominal pain that is located in the epigastric region. PSYCH: Positive for depression and anxiety. ENDOCRINE: Negative for diabetes or thyroid. All other reviewed and negative other than HPI. PAST MEDICAL HISTORY Diagnosis Date - Anxiety - Asthma - Nausea PAST SURGICAL HISTORY Procedure Laterality Date - COLONOSCOP W/ OR W/O [facility] SPEC 06/19/2013 Colonoscopy - EGD W/O OR W/BRUSH/WASH 09/09/13 EGD - ORAL SURGERY PROCEDURE - ORAL SURGERY PROCEDURE - ORAL SURGERY PROCEDURE FAMILY HISTORY Problem Relation Age of Onset - Heart Other Current Outpatient Prescriptions: dicyclomine (BENTYL) 20 mg tablet Take 1 tablet by mouth three times daily. (Patient not taking: Reported on 07/07/2018 ) Disp: 30 tablet Rfl: 1 omeprazole (PRILOSEC) 20 mg capsule Take 1 capsule by mouth once daily. Disp: 30 capsule Rfl: 4 MULTIVITAMIN ORAL Take 1 tablet by mouth once daily. Disp: Rfl: calcium carbonate (TUMS) 500 mg Chew Take 1 tablet by mouth as needed. Disp: Rfl: albuterol HFA (PROAIR HFA) 90 mcg/actuation inhaler Inhale 2 Puffs as instructed as needed. Disp: Rfl: fluticasone (FLOVENT HFA) 110 mcg/actuation inhaler Inhale 2 Puffs as instructed twice daily. Disp: Rfl: No current facility-administered medications for this visit. SOCIAL HISTORY: Patient is single. She quit smoking 7 years ago and reports her alcohol use as never. PHYSICAL EXAMINATION: Blood pressure 113/68, pulse 87, height 165.1 cm (5' 5), weight 54.9 kg (121 lb), last menstrual period 07/07/2018. General Appearance: Well appearing, alert, in no acute distress. Skin: Skin color, texture, turgor normal, no suspicious rashes or lesions. Head: Normocephalic, no masses, lesions, tenderness or abnormalities. Eyes: Anicteric sclera. Pupils are equally round and reactive to light. Extraocular movements are intact. Oropharynx: Edentulous. Lips, mucosa, and tongue normal, oropharynx normal. Neck: Supple, no adenopathy; thyroid symmetric, normal size. Lungs: Lungs clear to auscultation. No wheezing, rhonchi, rales. Heart: RRR without murmur. Abdomen: Abdomen soft, slight epigastric tenderness to palpation. Non-tender otherwise. Bowel sounds normal. No masses, organomegaly. Extremities: No deformities, edema, skin discoloration, clubbing or cyanosis. Peripheral Pulses: Normal. Neurologic: Gait normal. Reflexes normal and symmetric. Sensation grossly intact. Impression: Hiatal hernia 2)nausea Plan: UGI at [facility]. Continue omeprazole. Add ranitidine each evening while we do the work up. She agrees with this plan. I have personally interviewed and examined this patient. I have reviewed the information that the MA entered for this encounter. I spent 30 minutes in the visit, with greater than 50% of the total lslf-eh-gbrd time of the visit in counseling and coordination of care. Norma Carty RN SURFACE WATER TECHNICIAN.ASHELY Carty RN APRN.ASHELY 07/07/2018 3:41 PM Signed Continue omeprazole each morning. Start the new medication ,taking it around 5-6 in the evening. Elevate the head of the bed 6 inches or at least a wedge. Please follow the instructions for the test that looks at your esophagus and stomach (rao) This is an X-ray. It will take a day or two after the test for us to get the results. Call [phone], and ask to speak to a nurse in GI, if you have any questions or concerns in the mean time. Follow up with me after the x-ray. Referring Provider: SELF [200] Allergies As of Date: 07/07/2018 Noted Allergy Reaction PAXIL (PAROXETINE HCL) 11/23/2015 5 - Intolerance SEASONAL ALLERGIES 07/07/2018 16 - Unknown Date Reviewed: 07/07/2018 Reviewed by: Joya Brown Ma - Fully Assessed Reason for Visit: Abdominal Pain [1] losing teeth [Other] Weight Loss [882] Primary Visit Diagnosis:Epigastric pain [R10.13] Other Visit Diagnosis:Nausea [R11.0] Order(s):XR UPPER GI ROUTINE DOUBLE CONTRAST/AIR [2233971] Order #: [id number] FUTURE ranitidine (ZANTAC) 150 mg tabletTake 1 tablet by mouth DAILY AT 6 PM.Disp: 30 tabletRfl: 3 Prescriptions as of 07/07/2018 Sig: OMEPRAZOLE 20 MG CAPSULE,JORGE LUIS* Take 1 capsule by mouth once * RANITIDINE 150 MG TABLET Take 1 tablet by mouth DAILY * MULTIVITAMIN ORAL Take 1 tablet by mouth once d* CALCIUM CARBONATE 200 MG CALC* Take 1 tablet by mouth as nee* ALBUTEROL SULFATE HFA 90 MCG/* Inhale 2 Puffs as instructed * FLUTICASONE 110 MCG/ACTUATION* Inhale 2 Puffs as instructed * Problem List As Of Date 07/07/2018 Noted Resolved Nausea [R11.0] Other instructions from your clinician: Continue omeprazole each morning. Start the new medication ,taking it around 5-6 in the evening. Elevate the head of the bed 6 inches or at least a wedge. Please follow the instructions for the test that looks at your esophagus and stomach (rao) This is an X-ray. It will take a day or two after the test for us to get the results. Call [phone], and ask to speak to a nurse in GI, if you have any questions or concerns in the mean time. Follow up with me after the x-ray. Prescriptions ordered this encounter Disp Refills Start End RANITIDINE 150 MG TABLET 30 t* 3 07/07/2018 Route: ORAL Sig: Take 1 tablet by mouth DAILY AT 6 PM. Medications Discontinued During This Encounter dicyclomine (BENTYL) 20 mg tablet 30 t* 1 03/07/2016 07/07/2018 Route: ORAL Sig: Take 1 tablet by mouth three times daily. Patient not taking: Reported on 07/07/2018 Disc: Course of therapy completed Encounter Status:Closed by NORMA CARTY CNP on 07/07/18 CERVICAL Observed: 01/30/2018 Status: F Source: [place]O 9:30 AM [facility] [place] Patient: NICOLAS DOUGHERTY : 1990 (27/F) Acct Num: [id number] Phys: Guerrero ARREDONDO,Julia Unit Num: [id number] Loc: [facility] Specimen: [id number] Received: 01/30/18 1040 Spec Type: CERV TISSUES TISSUES: A. Uterine cervix, NOS COMMENT Clinical correlation and appropriate follow up are necessary. GROSS DESCRIPTION Received in fixative is one container labeled with the patient's name and designated ECC. The specimen consists of multiple irregular fragments of bennett mucoid tissue that in aggregate measure 0.5 x 0.5 x <0.1 cm. The specimen is totally submitted in one cassette. / SJ:duy 01/30/18 TC:4 CPT: 76809 HEADER OPERATION: Colposcopy PRE-OP DIAGNOSIS: LGSIL pap, LMP 01/09 TISSUE SUBMITTED: ECC MICROSCOPIC DESCRIPTION Slides are reviewed. MICROSCOPIC DIAGNOSIS ECC: Scant minute fragments of benign endocervical epithelium and mucous, negative for dysplasia. SJ:duy 01/31/18 Signed Rene Sabillon 01/31/18 <signature on file> Performed By: #### PCER #### [facility] [address] [place], [address] PAP I-G W/RFX HRHPV Collected: 01/07/2018 Status: F Source: RAO 11:30 AM [facility] [place] [facility] Order Comment: CYTOLOGY INFORMATION: - CLINICAL INFORMATION: - DATE LMP/MENOPAUSE: 12/11/17 LMP - COLLECTION VIAL: Thin Prep Vial - [employer] INSTRUCTOR SOURCE: CERVICAL/ENDOCERVICAL - COLLECTION TECHNIQUE: BRUSH/SPATULA Specimen Comment: [id number] Specimen Comment: No. of containers..01 ThinPrep Vial TYPE CODE TESTS RESULT OUT OF REFERENCE UNITS RANGE LAB L7400.0800 . High DIAGN Comment Result Comment: EPITHELIAL CELL ABNORMALITY. LOW-GRADE SQUAMOUS INTRAEPITHELIAL LESION (LGSIL); MILD DYSPLASIA IS PRESENT. LAB L7400.0900 . Normal ADEQ Comment Result Comment: Satisfactory for evaluation. Endocervical and/or squamous metaplastic cells (endocervical component) are present. LAB L7400.1300 . High RECOMM Comment Result Comment: Suggest follow up as clinically appropriate. LAB L7400.1400 . Normal PERFORM Comment Result Comment: Edna Johnson, Fiberglass Bonding Machine Tender (ASCP) LAB L7400.1700 . Normal SIGN Comment Result Comment: Lan Bolden MD, Pathologist LAB L7400.1720 . Normal Path prov. Comment ICD9 Result Comment: R87.612 LAB L7400.2575 . Normal TEST METHOD Comment Result Comment: This liquid based ThinPrep(R) pap test was screened with the use of an image guided system. LAB L7400.2600 . Normal . COMM LAB L7400.2700 . Normal PAPSMR Comment Result Comment: The Pap smear is a screening test designed to aid in the detection of premalignant and malignant conditions of the uterine cervix. It is not a diagnostic procedure and should not be used as the sole means of detecting cervical cancer. Both false-positive and false-negative reports do occur. LAB L7400.2800 . Normal HPV RFLX Comment Result Comment: The HPV DNA reflex criteria were not met with this specimen result therefore, no HPV testing was performed. Performed at: - [facility] [id number] Refining Machine Operator: Mary Phillips MD, Phone: [phone] Performed By: #### L7400.0350 #### [facility] (refer to report for specific site) refer to report for address and phone number HP Collected: 11/12/2017 Status: F Source: [facility] 10:40 AM [facility]ATION REPOSITORY TYPE CODE TESTS RESULT OUT OF REFERENCE UNITS RANGE LAB HP(LOINC) H. Pylori IgG Neg Result Comment: INTERPRETATION OF H. PYLORI IGG BY EIA: Negative No detectable antibodies to H. pylori. Positive H. pylori IgG antibody detected. Equivocal Equivocal for IgG antibodies to H. pylori. Repeat testing if still indicated. Performed By: #### HP #### [place] [address] ALLERGIES ALLERGIES DATE TYPE / CODE NAME / CODE REACTION SEVERITY SOURCE 08/04/2018 Drug paroxetine/F0060 Unknown Unknown Wesley Allergy/416 62459(RXNORM) [facility] 919328([facility] ED CT) Repository 07/07/2018 Environ/420 SEASONAL UNKNOWN [facility] 687981([facility] ALLERGIES [facility] [place] ED CT) Repository 01/16/2016 Drug No Known Unknown Rao Allergy/416 Allergies/B42332 [facility] 526276([facility] 0388(RXNORM) [facility] ED CT) Repository 11/23/2015 DRUG PAROXETINE HCL INTOLERANCE [facility] INGREDI/419 [facility] 667710([facility] ED CT) ENCOUNTERS ENCOUNTERS ADMIT/DISCHARGE ACCOUNT NUMBER ADMITTING ENCOUNTER LOCATION SOURCE CLASS 09/19/2018 [id number] Ambulatory [facility] ding:WOBLAB Repository 09/17/2018 [id number] Ambulatory [facility] ding:WOBLAB Repository 2018 [id number] Ambulatory [facility] ding:LABSPEC Repository 08/04/2018/08/04/20 [id number] Ambulatory [address] ding:ENRoom: Repository AC14 07/17/2018/07/17/20 [id number] Ambulatory [address] Repository 07/16/2018/07/16/20 [id number] Ambulatory [address] Repository 07/10/2018 [id number] Ambulatory [facility] ding:RAD Repository 07/07/2018/07/09/20 [id number] Ambulatory [address] Repository 01/30/2018 [id number] [facility] ding:LABSPEC Repository 01/07/2018 [id number] [facility] ding:LABSPEC Repository 11/12/2017/11/16/19 [id number] Ambulatory [address] ding:[facility] Foundation Repository PAYERS PAYERS ENCOUNTER GUARANTOR PAYER SUBSCRIBER SOURCE 09/19/2018 TIA N Primary TIA N Rao [id number] N Insurance:DORA RIVERAB: [id number] Number: Repository [address], [place] [id number]: [phone]) Date:1330-33-70QA [phone] ([facility] [address] [place] [address]UO: 09/19/2018 Secondary NOT GIVENUNK Wesley Insurance:SELF PAY [facility] Number: Effective Repository Date:2018-09-19 09/17/2018 TIA N Primary TIA N Wesley [id number] N Insurance:DORA RIVERA: [employer] [facility] [id number] Number: Repository [address], [place] [id number]: ([phone]) Date:9959-22-23EQ [phone] (HP) [address] [place], [place] [address]MARINA MCKEE [address]49[address]KK: 09/17/2018 Secondary NOT GIVENUNK Wesley Insurance:SELF PAY [facility] Number: Effective Repository Date:2018-09-17 2018 TIA N Primary TIA N Rao [id number] N Insurance:BUCKEYE GACKENBACHDOB: [employer] [facility] [id number] LLCicy Number: Repository [address] [place] [address] [id number]: (843) Date:2290-38-87NH [phone] (HP) [address] [place] [address] [place] [address]LX: 2018 Secondary NOT GIVENUNK Wesley Insurance:SELF PAY [facility] Number: Effective Repository Date:2018 08/04/2018 TIA N Primary TIA N Wesley [id number] N Insurance:BUCKEYE GACKENBACHDOB: [employer] [facility] [id number] LLCicy Number: Repository [address] [place] [address] [id number]: (433) Date:8249-96-42XP [phone] () [address] [place], [place] [address]RAFI [place] [address]OW: 08/04/2018 Secondary NOT GIVENUNK Wesley Insurance:SELF PAY [facility] Number: Effective Repository Date:2018-07-21 07/10/2018 TIA N Primary TIA N Wesley [id number] N Insurance:BUCKEYE GACKENBACHDOB: [facility] [id number] PLANPolicy Number: Repository [id number]: (608) [id number] [phone] (HP) Date:7478-12-41TG [address] [place] [address]JW: 07/10/2018 Secondary NOT GIVENUNK Rao Insurance:SELF PAY [facility] Number: Effective Repository Date:2018-07-07 01/30/2018 Tia Primary Tia Rao [id number] N Insurance:BUCKEYE FreddybachDOB: [address] [facility] [address] [facility] [id number] Number: Repository [address]Kfm: 330 [id number] [phone] (HP) Date:1706-20-58PE [address] [place] [address]AG: 01/30/2018 Secondary NOT GIVENUNK Wesley Insurance:SELF PAY [facility] Number: Effective Repository Date:2018-01-30 01/07/2018 Tia Primary Tia Rao [id number] N Insurance:BUCKEYE [facility] HospitalnickbachDOB: [facility] [place] [facility] [id number] Number: Repository [address]Yey: 330 [id number] [phone] (HP) Date:8744-63-27ZS [address] [place] [address]JU: 01/07/2018 Secondary NOT GIVENUNK Rao Insurance:SELF PAY [facility] Number: Effective Repository Date:2018-01-07 11/12/2017 TIA N [facility]: Insurance:EDWARDJayme DOUGHERTYB: [facility] N [facility]Pol[facility] [id number] Repository [facility] [address] Number: [address] [place], [place] [id number] [place], [place] [address]Khx: ([phone]) Date:2017-11-12 41684Ylb: [id number] [phone] (HP)Tel: ([phone]) Name:X[address] Box (HP) (WP) [address] [place] [address] [place] [phone] (WP) [phone]:
== END ==
PROVIDERS: Visit Provider Obstetrics & Gynecology
DX: N91.2 Amenorrhea, unspecified (principal)
CPT/HCPCS: 36415; 84702

== ENCOUNTER → 2018-09-19 09:17 | Outpatient (CLI) | payer MEDICAID, SELFPAY ==
[2018-09-19 15:08] LABS: hCG Titer Quant., Serum 2550 mIU/mL (<9 non-preg)
--- OUTSIDE RECORDS SUMMARY | 2018-11-14 04:06 | XMS RPT_ITS ---
:1990 Author Organization OHIP Care Team Providers Name Role Phone KAREN BROWN DO Attending Unavailable KAREN BROWN DO Primary Care Unavailable THORNORMA BUTLER (SOCIAL WORKER PALLIATIVE CARE) Attending Unavailable THORPE, NORMA (SOCIAL WORKER PALLIATIVE CARE) Attending Unavailable THORCARRIE, NORMA (SOCIAL WORKER PALLIATIVE CARE) Referring Unavailable THORCARRIE, NORMA (SOCIAL WORKER PALLIATIVE CARE) Referring Unavailable Julia Masters Attending Unavailable Julia Masters Attending Unavailable Julia Masters Attending Unavailable NORMA CARTY Attending Unavailable NAPOLEON CARTYA Referring Unavailable Karen Brown Primary Care Unavailable Julia Masters Attending Unavailable Julia Masters Attending Unavailable Zita Bennett Attending Unavailable Zita Bennett Referring Unavailable Karen Brown Primary Care Unavailable PROBLEMS PROBLEMS DATE TYPE CONDITION / CODE ATTENDING STATUS SOURCE 2018 Unknown Z12.4 - Encounter Julia Masters Active Rao for screening for Community malignant neoplasm [facility] / Repository Z12.4(ICD-10) 2018 Unknown Z11.3 - Encounter Julia Masters Active Rao for screening for Community infections with a Hospital predominantly Repository sexual mode of transmission / Z11.3(ICD-10) 01/17/2015 Active Nausea / NA Active [place] R11.0(ICD-10) Clinic Main [place] Repository 07/17/2018 Active Epigastric pain / NA Active [place] R10.13(ICD-10) Clinic Main [place] Repository 07/17/2018 Active Abdominal NA Active [place] distension Clinic Main (gaseous) / [place] R14.0(ICD-10) Repository 01/29/2018 Unknown R87.610 - Atypical Julia Masters Active Rao squamous cells of Community undetermined Hospital significance on Repository cytologic smear of cervix (ASC-US) / R87.610(ICD-10) 11/12/2017 Admitting Gastro-esophageal BROWN DO, Active [facility] Diagnosis reflux disease KAREN [facility] without esophagitis Repository / K21.9(ICD-10) PROCEDURES PROCEDURES No Procedure Records FoundRESULTS RESULTS CNCO Observed: 09/30/2018 Status: COMPLETED Source: MILL[place] 12:00 AM CLINIC MAIN CAMPUS REPOSITORY Letter Text Department of Gastroenterology [address] [place], [place] [address] 09/30/2018 Nicolas Dougherty [address] [facility] 5 [facility] [address] Dear Nicolas, We are unable to reach you by phone, so mailing a letter RE: received a medication refill request on Ondansetron from your pharmacy. This has been denied. You will need to be seen in if still experiencing nausea. Call [phone] to schedule apt with LYSSA Martinez. Sincerely, LYSSA Joyner/Chelsea Gannon LPN HCG TITER QUANT., Collected: 09/19/2018 Status: F Source: W[place] SERUM 9:19 AM [facility] REPOSITORY TYPE CODE TESTS RESULT OUT OF RANGE REFERENCE UNITS LAB L700.8000 <9 non-preg mIU/mL High HCG 2550 QUANT. Performed By: #### L700.8000 #### [facility] [address] [place], [address] HCG TITER QUANT., Collected: 09/17/2018 Status: F Source: [place] SER[place] 4:27 PM [facility] REPOSITORY TYPE CODE TESTS RESULT OUT OF RANGE REFERENCE UNITS LAB L700.8000 <9 non-preg mIU/mL High HCG 979 QUANT. Performed By: #### L700.8000 #### [facility] [address] [place], [address] CT/NG W[facility] BY PCR Collected: 2018 Status: F Source: WILSON 2:30 PM [facility] REPOSITORY TYPE CODE TESTS RESULT OUT OF RANGE REFERENCE UNITS LAB L8200.2100 Negative Normal Chlam Negative Trac PCR LAB L8200.2200 Negative Normal NG by Negative PCR Performed By: #### L8200.2000 #### [facility] [address] [place], [address] PAP I-G W/RFX HRHPV Collected: 2018 Status: F Source: W[place] 2:30 PM [facility] REPOSITORY Order Comment: CYTOLOGY INFORMATION: - CLINICAL INFORMATION: - DATE LMP/MENOPAUSE: 07/30/18 LMP - COLLECTION VIAL: Thin Prep Vial - ART DIRECTOR SOURCE: CERVICAL/ENDOCERVICAL - COLLECTION TECHNIQUE: BRUSH/SPATULA Specimen Comment: [id number] Specimen Comment: Source.............Cervix;Endocervix Specimen Comment: LMP / Prev Treat...VBE=[id number] Specimen Comment: No. of containers..01 ThinPrep Vial [...] Normal PERFORM Comment Result Comment: Mirtha Mcfarlane, Monitoring Coordinator (ASCP) LAB L7400.1700 . Normal SIGN Comment [...] no HPV testing was performed. Performed at: [facility] [place] [id number] Event Organizer: Tressa Cronin MD, Phone: [phone] Performed at: [facility] [id number] Event Organizer: Mary Phillips MD, Phone: [phone] Performed By: #### L7400.0350 #### [facility] (refer to report for specific site) refer to report for address and phone number OPERATIVE REPORT Observed: 08/10/2018 Status: F Source: [place] 9:27 AM [facility] Medical Records Department [address] [place] [address] Operative Report 08/04/18 1323 MR#: [id number] Acct: [id number] Name: TYRONNICOLAS WALLACE Jo Ann Rep #: [id number] : 1990 27 From: Zita Bennett MD PCP: Karen Brown DO Status: [facility] Y Location: EN Report of Operation Date [...] 08/04/2018 Status: F Source: RAO 12:22 PM [facility] REPOSITORY TYPE CODE TESTS RESULT OUT OF REFERENCE UNITS RANGE LAB L400.8000 Negative Normal HCGUQUAL Negative Result Comment: Very dilute urine specimens, as indicated by a low specific gravity, may not contain outside energy sales representatives levels of hCG. If is still suspected, a first morning urine specimen should be collected 48 hours later and tested. Performed By: #### L400.7600 #### [facility] [address] [place] [address]. [place], [place], [address] IMMUNOHISTOCHEMISTRY Observed: 08/04/2018 Status: F Source: W[place] 12:00 AM [facility] REPOSITORY Patient: NICOLAS DOUGHERTY N : 1990 () Acct Num: [id number] Phys: Zita Bennett MD Unit Num: [id number] Loc: EN Specimen: [id number] Received: 08/04/181404 Spec Type: IMMUNO TISSUES 1 TISSUES: B. Stomach, NOS SPECIMEN INFORMATION: Tissue Source: B - Antrum biopsy Clinical Info: Epigastric pain Specimen Number: [id number] B CPT code: 19433 METHODOLOGY: Deparaffinized sections of prefer/formalin-fixed tissue or [...] developed and their performance characteristics determined by [facility]. They may not have been cleared or approved by the U.S. Food and Drug Administration. The FDA has determined that such clearance or approval is not necessary. INTERPRETATION: B. Antrum, biopsy: Negative for Helicobacter pylori organisms. SJ:duy 08/05/18 PHYSICIAN AND INSTITUTION [address] [address] Signed Rene Sabillon 08/05/18 <signature on file> Performed By: #### PIMM #### [facility] [address] [place] [address]. [place], [place], [address] EGD ([facility]) Observed: 08/04/2018 Status: F Source: [place] 12:00 AM [facility] REPOSITORY Patient: NICOLAS DOUGHERTY : 1990 () Acct Num: [id number] Phys: Donald ARREDONDO,Zita Unit Num: [id number] Loc: EN Specimen: [id number] Received: 08/04/181425 Spec Type: EGD BIOPSY TISSUES 1 TISSUES: A. Duodenum, NOS B. Gastric mucous membrane C. Gastric mucous membrane COMMENT B. The results of immunohistochemistry for Helicobacter pylori will be reported separately ([id number]). C. Alcian blue/PAS stain with matched control [...] one cassette. / ABIDA:duy 08/04/18 TC:5 CPT: 20201 x3, 01588 HEADER OPERATION: EGD ([facility]) PRE-OP DIAGNOSIS: Epigastric pain TISSUE SUBMITTED: A [...] on file> Performed By: #### PEGD #### [facility] [address] [place], [address] CBC Collected: 07/17/2018 Status: F Source: [place] 9:01 AM [facility] REPOSITORY TYPE CODE TESTS RESULT OUT OF [...] Performed By: #### CBC, CMP, LIPA #### [facility] [address] [place], [place] [address] COMP METABOLIC PANEL Collected: 07/17/2018 Status: F Source: [place] 9:01 AM [facility] REPOSITORY TYPE CODE TESTS RESULT OUT OF REFERENCE UNITS RANGE LAB TP 6.3-8.0 g/dL Protein, Total 6.4 LAB ALB 3.9-4.9 g/dL Albumin 4.4 LAB CA 8.5-10.2 mg/dL Calcium, Total 9.2 LAB TBIL 0.2-1.3 mg/dL Bilirubin, Total 0.6 LAB ALKP 34-123 U/L Alkaline Phosphatase 66 LAB AST 13-35 U/L AST 15 LAB GLU 74-99 mg/dL Low Glucose 71 Result Comment: The [place] Diabetes Association (ADA) provides guidance for cutoff [...] Standards of Medical Care in Diabetes 2016, [place] Diabetes Association. Diabetes Care. 2016.39(Suppl 1). LAB [...] Performed By: #### CBC, CMP, LIPA #### [facility] [address] [place], [place] [address] LIPASE Collected: 07/17/2018 Status: F Source: [place] 9:01 AM [facility] REPOSITORY TYPE CODE TESTS RESULT OUT OF REFERENCE UNITS RANGE LAB LIPA 16-61 U/L Lipase 32 Performed By: #### CBC, CMP, LIPA #### [facility] [address] [place], [place] [address] PROGRESS Observed: 07/16/2018 Status: COMPLETED Source: M[place] 9:23 AM [facility] REPOSITORY HNO ID: [id number] Author: Norma Carty Service: (none) Author Type: [...] melena. No new or worsening abdominal pain. ART DIRECTOR: Negative for abnormal vaginal bleeding, abnormal vaginal [...] Laterality Date - COLONOSCOP W/ OR W/O [facility] SPEC 06/19/2013 Colonoscopy - EGD W/O OR [...] with more than 50% of the total ucms-yn-azlm time of the visit in counseling / coordination of care. Norma Carty RN APRN.ASHELY CNOV Observed: 07/16/2018 Status: COMPLETED Source: [place] 9:00 AM [facility] REPOSITORY [facility] NICOLAS DOUGHERTY ([id number]) 1990 F Date Time Provider Department 07/16/18 9:00 AM NORMA CARTY (SOCIAL WORKER PALLIATIVE CARE) [facility] During your visit today, we recorded the following information about you: Pulse Blood pressure Weight Height 98/minute 107/65 54.9 kg 1.651 m Norma Carty RN APRN.BASS STRING WINDER 07/16/2018 3:24 PM Signed Nicolas Dougherty a [...] melena. No new or worsening abdominal pain. ART DIRECTOR: Negative for abnormal vaginal bleeding, abnormal vaginal [...] with more than 50% of the total hdjh-uz-grik time of the visit in counseling / coordination of care. Norma Carty RN MONOGRAM TECHNICIAN.ASHELY Carty RN APRN.ASHELY 07/16/2018 9:42 AM Signed Continue current medications. Start the gas pill, taking 2 with every meal. Please follow the instructions for upper endoscopy. Your procedure will be with Dr. Bennett, with the deeper sedation we call MAC. Please call the manager recruiting (Lan), at the number provided, to schedule your procedure. The endoscopy staff will call you the day before the procedure, to give you specifics on time. (Saturday for a Saturday procedure) Referring Provider: NORMA CARTY (TINY) [[id number]] Allergies As of Date: 07/16/2018 Noted Allergy Reaction PAXIL (PAROXETINE HCL) 11/23/2015 5 - Intolerance SEASONAL ALLERGIES 07/07/2018 16 - Unknown Date Reviewed: 07/16/2018 Reviewed by: Joya Brown Ma - Fully Assessed Reason for Visit: Discuss EGD [Other] Primary Visit Diagnosis:Epigastric pain [R10.13] Other Visit Diagnoses:Nausea [R11.0] Postprandial abdominal bloating [R14.0] Order(s):EGD GEN ANES [6329176] Order #: [id number] FUTURE omeprazole (PRILOSEC) 20 mg capsuleTake 1 capsule by mouth once daily.Disp: 30 capsuleRfl: 4 Simethicone 125 mg chewable tabletChew 2 tablets with each meal.Disp: 180 tabletRfl: 3 ondansetron orally disintegrating (ZOFRAN ODT) 4 mg disintegrating tabletTake 1 tablet by mouth every 8 hours as needed.Disp: 40 tabletRfl: 1 COMP METABOLIC PANEL [SQCMP] Order #: [id number] FUTURE CBC [SQCBC] Order #: [id number] FUTURE LIPASE BLD [SQLIPA] Order #: [id number] FUTURE Prescriptions as of 07/16/2018 Sig: OMEPRAZOLE 20 MG CAPSULE,JORGE ULIS* Take 1 capsule by mouth once * [...] sedation we call MAC. Please call the manager recruiting (Lan), at the number provided, to schedule [...] GI SERIES Observed: 07/10/2018 Status: F Source: WILSON ONLY 8:52 AM [facility] REPOSITORY [facility] Imaging Services [address] [place] [address] Upper GI Series Only MR#: [id number] Acct: [id number] Name: NICOLAS DOUGHERTY Rep #: [id number] : 1990 F 27 From: Иван Bates MD PCP: Karen Brown DO Status: REG CLI Study: Upper GI Series Only Date of Exam: 07/10/18 Exam# [id number] Ordering Dr: Norma Carty STUDY: AIR-CONTRAST UPPER [...] Иван Bates MD at 8:04 EDT Tel [phone], Service support , CC: NORMA CARTY; Karen Brown DO Aircraft Instrument Repairer: Signed HISTORY PHYSICAL Observed: 07/07/2018 Status: COMPLETED Source: [place] 3:01 PM [facility] REPOSITORY O ID: [id number] Author: Norma Carty Service: (none) Author Type: [...] Laterality Date - COLONOSCOP W/ OR W/O [facility] SPEC 06/19/2013 Colonoscopy - EGD W/O OR [...] Impression: Hiatal hernia 2)nausea Plan: UGI at [facility]. Continue omeprazole. Add ranitidine each evening while we do the work up. She agrees with this plan. I have personally interviewed and examined this patient. I have reviewed the information that the MA entered for this encounter. I spent 30 minutes in the visit, with greater than 50% of the total jjol-zg-swvm time of the visit in counseling and coordination of care. Norma Carty RN APRN.BASS STRING WINDER CNOV Observed: 07/07/2018 Status: COMPLETED Source: [place] 2:40 PM [facility] REPOSITORY Office Visit ([facility]) NICOLAS DOUGHERTY ([id number]) 1990 F Date Time Provider Department 07/07/18 2:40 PM NORMA CARTY (SOCIAL WORKER PALLIATIVE CARE) [facility] During your visit today, we recorded the following information about you: Pulse Blood pressure Weight Height 87/minute 113/68 54.9 kg 1.651 m Last Period 07/07/18 Norma Carty RN APRN.BASS STRING WINDER 07/07/2018 5:27 PM Signed Nicolas Dougherty a [...] Impression: Hiatal hernia 2)nausea Plan: UGI at [facility]. Continue omeprazole. Add ranitidine each evening while we do the work up. She agrees with this plan. I have personally interviewed and examined this patient. I have reviewed the information that the MA entered for this encounter. I spent 30 minutes in the visit, with greater than 50% of the total pqex-za-fowu time of the visit in counseling and coordination of care. Norma Carty RN MONOGRAM TECHNICIAN.ASHELY Carty RN APRN.ASHELY 07/07/2018 3:41 PM [...] for us to get the results. Call [phone], and ask to speak to a nurse [...] [R11.0] Order(s):XR UPPER GI ROUTINE DOUBLE CONTRAST/AIR [4295202] Order #: [id number] FUTURE ranitidine (ZANTAC) 150 mg tabletTake 1 [...] for us to get the results. Call [phone], and ask to speak to a nurse [...] 01/30/2018 Status: F Source: RAO 9:30 AM [facility] REPOSITORY Patient: NICOLAS DOUGHERTY : 1990 (27/F) Acct Num: [id number] Phys: Guerrero ARREDONDO,Julia Unit Num: [id number] Loc: LABSPEC Specimen: [id number] Received: 01/30/18 1040 Spec Type: CERV TISSUES [...] one cassette. / SJ:duy 01/30/18 TC:4 CPT: 19561 HEADER OPERATION: Colposcopy PRE-OP DIAGNOSIS: LGSIL pap, LMP 01/09 TISSUE SUBMITTED: ECC MICROSCOPIC DESCRIPTION Slides are reviewed. MICROSCOPIC DIAGNOSIS ECC: Scant minute fragments of benign endocervical epithelium and mucous, negative for dysplasia. SJ:duy 01/31/18 Signed Rene Sabillon 01/31/18 <signature on file> Performed By: #### PCER #### [facility] [address] [place], [address] PAP I-G W/RFX HRHPV Collected: 01/07/2018 Status: F Source: RAO 11:30 AM [facility] REPOSITORY Order Comment: CYTOLOGY INFORMATION: - CLINICAL INFORMATION: - DATE LMP/MENOPAUSE: 12/11/17 LMP - COLLECTION VIAL: Thin Prep Vial - ART DIRECTOR SOURCE: CERVICAL/ENDOCERVICAL - COLLECTION TECHNIQUE: BRUSH/SPATULA Specimen Comment: [id number] Specimen Comment: No. of containers..01 ThinPrep Vial [...] Normal PERFORM Comment Result Comment: Edna Johnson, Monitoring Coordinator (ASCP) LAB L7400.1700 . Normal SIGN Comment [...] HPV testing was performed. Performed at: - [facility] [id number] Event Organizer: Mary Phillips MD, Phone: [phone] Performed By: #### L7400.0350 #### [facility] (refer to report for specific site) refer to report for address and phone number HP Collected: 11/12/2017 Status: F Source: [facility] 10:40 AM [facility] REPOSITORY TYPE CODE TESTS RESULT OUT OF REFERENCE UNITS RANGE LAB HP(LOINC) H. Pylori IgG Neg Result Comment: INTERPRETATION OF H. PYLORI IGG BY EIA: Negative No detectable antibodies to H. pylori. Positive H. pylori IgG antibody detected. Equivocal Equivocal for IgG antibodies to H. pylori. Repeat testing if still indicated. Performed By: #### HP #### [place] [address] ALLERGIES ALLERGIES DATE TYPE / CODE NAME / CODE REACTION SEVERITY SOURCE 08/04/2018 Drug paroxetine/F0060 Unknown Unknown [place] Allergy/416 97558(RXNORM) [facility] 569010([facility] ED CT) Repository 07/07/2018 Environ/420 SEASONAL UNKNOWN [facility] 691014([facility] ALLERGIES Main [place] ED CT) Repository 01/16/2016 Drug No Known Unknown [place] Allergy/416 Allergies/B28236 [facility] 063157([facility] 0388(RXNORM) [facility] ED CT) Repository 11/23/2015 DRUG PAROXETINE HCL INTOLERANCE [facility] INGREDI/419 [facility] 709883([facility] ED CT) ENCOUNTERS ENCOUNTERS ADMIT/DISCHARGE ACCOUNT NUMBER ADMITTING ENCOUNTER LOCATION SOURCE CLASS 09/19/2018 [id number] Ambulatory [facility] ding:WOBLAB Repository 09/17/2018 [id number] Ambulatory [facility] ding:WOBLAB Repository 2018 [id number] Ambulatory [facility] ding:LABSPEC Repository 08/04/2018/08/04/20 [id number] Ambulatory [address] ding:ENRoom: Repository AC14 07/17/2018/07/17/20 [id number] Ambulatory [address] Repository 07/16/2018/07/16/20 [id number] Ambulatory [address] Repository 07/10/2018 [id number] Ambulatory [facility] ding:RAD Repository 07/07/2018/07/09/20 [id number] Ambulatory [address] Repository 01/30/2018 [id number] [facility] ding:LABSPEC Repository 01/07/2018 [id number] [facility] ding:LABSPEC Repository 11/12/2017/11/16/19 [id number] Ambulatory [address] ding:[facility] Foundation Repository PAYERS PAYERS ENCOUNTER GUARANTOR PAYER SUBSCRIBER SOURCE 09/19/2018 TIA N Primary TIA N [place] [id number] Insurance:DORA RIVERAB: [facility] [id number] Number: Repository [address], [place] [id number]: ([phone]) Date:2801-93-10RH [phone] ([facility] [address] [place] [address]EK: 09/19/2018 Secondary NOT GIVENUNK [place] Insurance:SELF PAY [facility] Number: Effective Repository Date:2018-09-19 09/17/2018 TIA N Primary TIA N [place] [id number] N Insurance:DORA RIVERA: [facility] [id number] Number: Repository [address], [place] [id number]: [phone]) Date:6860-81-62FM [phone] (HP) [address] [place], [place] [address]MARINA MCKEE [address]UK: 09/17/2018 Secondary NOT GIVENUNK [place] Insurance:SELF PAY [facility] Number: Effective Repository Date:2018-09-17 2018 TIA N Primary TIA N Rao [id number] N Insurance:BUCKEYE GACKENBACHDOB: [facility] [id number] [facility] Hospital[facility] Number: Repository [address] [place] [address] [id number]: (843) Date:4050-02-74TD [phone] (HP) [address] [place] [address] [place] [address]AB: 2018 Secondary NOT GIVENUNK [place] Insurance:SELF PAY [facility] Number: Effective Repository Date:2018 08/04/2018 TIA N Primary TIA N [place] [id number] N Insurance:BUCKEYE GACKENBACHDOB: [facility] [id number] [facility] Care Hospitalicy Number: Repository [address] [place] [address] [id number] [id number]: ([phone]) Date:1560-20-61FU [phone] () [address] [place], [place] [address]RA[address] [place] [address]BV: 08/04/2018 Secondary NOT GIVENUNK [place] Insurance:SELF PAY [facility] Number: Effective Repository Date:2018-07-21 07/10/2018 TIA N Primary TIA N [place] [id number] [address] Insurance:BUCKEYE GACKENBACHDOB: [facility] [id number] PLANPolicy Number: Repository [id number]: (437) [id number] [phone] (HP) Date:6459-34-58[address] [address]DJ: 07/10/2018 Secondary NOT GIVENUNK [place] Insurance:SELF PAY [facility] Number: Effective Repository Date:2018-07-07 01/30/2018 Tia Primary Tia Rao [id number] Insurance:BUCKEYE FreddybachDOB: [facility] [facility] [id number] Number: Repository [address]Kho: 330 [id number] [phone] (HP) Date:5029-21-32BQ [address] [place] [address]NY: 01/30/2018 Secondary NOT GIVENUNK [place] Insurance:SELF PAY [facility] Number: Effective Repository Date:2018-01-30 01/07/2018 Tia Primary Tia Rao [id number] Insurance:BUCKEYE [facility]: [facility] [place] [facility] [id number] Number: Repository [id number]: 330 [id number] [phone] (HP) Date:6900-17-20RM [address] [place] [address]US: 01/07/2018 Secondary NOT GIVENUNK [place]ao Insurance:SELF PAY [facility] Number: Effective Repository Date:2018-01-07 11/12/2017 TIA N Primary TIA N [facility]ADÁNB: Insurance:EDWARDJayme DOUGHERTYB: [facility] N [facility] PLANPolgut[facility] [id number] Repository [address] [facility] [address] Number: [address] [place], [place] [id number] [place], [place] [address]Jlz: (330) Date:2017-11-12 [address]Haf: [id number] [phone] (HP)Tel: ([phone]) Name:X[address] Box (HP) (WP) [address] [place] [address] [place] [phone] (WP) [phone]:
== END ==
PROVIDERS: Visit Provider Obstetrics & Gynecology
DX: N91.2 Amenorrhea, unspecified (principal)
CPT/HCPCS: 36415; 84702

== ENCOUNTER → 2018-10-28 15:47 | Outpatient (CLI) | payer MEDICAID, SELFPAY ==
[2018-10-28 20:02] LABS: Chlamydia Trachomatis by PCR Negative (Negative); Neisserai gonorrhoeae by PCR Negative (Negative); Probe Check PASS; Sample Adequacy Control PASS; Specimen Processing Control PASS
== END ==
PROVIDERS: Visit Provider Obstetrics & Gynecology
DX: Z11.3 Encounter for screening for infections with a predominantly sexual mode of transmission (principal)
CPT/HCPCS: 87491; 87591

== ENCOUNTER → 2018-11-21 14:52 | Outpatient (CLI) | payer MEDICAID, SELFPAY ==
[2018-11-21 17:02] LABS: Absolute Lymphocyte Count 2.52 X10^3/ul (0.83-4.51); Absolute Neutrophil Count 5.2 X10^3/uL (2.0-7.7); Basophil# 0.02 X10^3/uL; Basophil% 0.2 % (0-1); Eosinophil# 0.13 X10^3/uL; Eosinophils% 1.6 % (0-5); Lymphocyte # 2.52 X10^3/ul (4.0); Lymphocyte % 30.3 % (19-41); Mean Corp Hgb Conc 34.1 g/gl (32-36); Mean Corpuscular Hgb 32.2 pg (27.0-32.0); Mean Corpuscular Volume 94.3 fL (81-99); Mean Platelet Vol. 10.3 fl (6.2-12.0); Monocyte# 0.41 X10^3/uL; Monocyte% 4.9 % (0-10); Neutrophil # 5.23 X10^3/uL (2.7-7.7); Neutrophil % 62.8 % (47-70); Platelet Count 310 K/mm3 (150-450); RBC Distribution Width CV 13.6 % (11.6-14.6); RBC Distribution Width SD 46.7 fl (35.1-43.9); Red Blood Count 4.35 M/mm3 (4.2-5.4); White Blood Count 8.3 K/mm3 (4.4-11.0)
[2018-11-21 17:03] LABS: POSITIVE COUNT NO; POSITIVE DIFFERENTIAL NO; POSITIVE MORPHOLOGY NO
[2018-11-21 17:24] LABS: COTININE Drug Screen Positive (<200 ng/mL)
[2018-11-21 17:32] LABS: Amphetamine Urine VISTA NEGATIVE (<1000 ng/mL); Barbiturate Urine VISTA NEGATIVE (< 200 ng/mL); Benzodiazepine Urine VISTA NEGATIVE (< 200 ng/mL); Cocaine Urine VISTA NEGATIVE (< 300 ng/mL); Ecstacy Urine VISTA NEGATIVE (< 500 ng/mL); Methadone Urine VISTA NEGATIVE (< 300 ng/mL); PCP Urine VISTA NEGATIVE (< 25 ng/mL); THC Urine VISTA NEGATIVE (< 50 ng/mL); Vista UDS pH Range 7
[2018-11-21 17:52] LABS: Color, Urine Yellow (Yellow); Glucose, Dipstick Normal (Normal); Ketone-Dipstick Negative (Negative); Leukocyte Esterase-Dipstick Negative /ul (Negative); Nitrite-Dipstick Negative (Negative); Occult Blood-Urine Negative /ul (Negative); Protein-Dipstick Negative (Negative); Specific Gravity, Urine 1.015 (1.002-1.030); Urine Bilirubin Dipstick Negative (Negative); Urine Clarity Sl. Cloudy (Clear); Urine Urobilinogen Normal (Normal)
[2018-11-21 18:08] LABS: HIV - WCH Non-Reactive (Nonreactive); Rubella IgG 122.7 IU/mL
[2018-11-21 18:26] LABS: Thyroid Stim Hormone (TSH) 1.13 uIU/mL (0.358-3.74)
[2018-11-24 11:15] LABS: HEPATITIS B SURFACE AG Negative (Negative); Hep C Antibodies <0.1 s/co ratio (0.0-0.9); Toxoplasma Gondii IgG < 3.0 IU/mL (0.0-7.1)
[2018-11-24 11:16] LABS: Toxoplasma Gondii IgM < 3.0 AU/mL (0.0-7.9)
[2018-11-27 23:33] LABS: Prenatal RPR NONREACTIVE (NONREACTIVE)
== END ==
PROVIDERS: Visit Provider Obstetrics & Gynecology
DX: Z34.81 Encounter for supervision of other normal pregnancy, first trimester (principal)
CPT/HCPCS: 36415; 80307; 81002; 84443; 85025; 86703; 86762; 86777; 86778; 86803; 87340

== ENCOUNTER → 2018-12-30 10:53 | Outpatient (CLI) | payer MEDICAID, SELFPAY ==
[2019-01-05 20:07] LABS: AFP MoM Value 1.27 (.); AFP Value-EIA 65.4 ng/mL (.); Comment Report (.); DIA MoM Value 2.39 (.); DIA Value-EIA 463.95 pg/mL (.); DSR (By Age) 805 (.); DSR (Second Trimester) 1943 (.); Gestat. Age Based On As provided (.); Gestational Age 18.6 WEEKS (.); Insulin Dep Diabetes No (.); Maternal Age At EDD 28.7 yr (.); hCG MoM 0.71 (.); hCG Value 20519 mIU/mL (.)
== END ==
PROVIDERS: Visit Provider Obstetrics & Gynecology
DX: Z34.82 Encounter for supervision of other normal pregnancy, second trimester (principal)
CPT/HCPCS: 36415; 82105; 82677; 84702; 86336

== ENCOUNTER → 2019-03-19 | Outpatient (CLI) | payer MEDICAID, SELFPAY ==
[2019-03-19 12:36] LABS: Hematocrit 33.3 % (37-47); Mean Corpuscular Hgb 31.2 pg (27.0-32.0); Mean Corpuscular Volume 94.3 fL (81-99); Mean Platelet Vol. 10.1 fl (6.2-12.0); Platelet Count 261 K/mm3 (150-450); RBC Distribution Width CV 13.5 % (11.6-14.6); RBC Distribution Width SD 44.3 fl (35.1-43.9); Red Blood Count 3.53 M/mm3 (4.2-5.4); White Blood Count 8.7 K/mm3 (4.4-11.0)
[2019-03-19 12:40] LABS: Scan Indicated on CBC? Y/N NO
[2019-03-19 12:44] LABS: Glucose Challenge Gest 1H 50g 95 mg/dL (70-140)
== END | disposition home or self-care (01) ==
LOC: WOBLAB 09:12
PROVIDERS: Visit Provider Obstetrics & Gynecology
DX: Z34.83 Encounter for supervision of other normal pregnancy, third trimester (principal)
CPT/HCPCS: 36415; 82950; 85027

== ENCOUNTER → 2019-04-03 | Outpatient (CLI) | payer MEDICAID, SELFPAY ==
[2019-04-03 11:58] LABS: Fetal Fibronectin Negative
== END | disposition home or self-care (01) ==
LOC: LABSPEC 11:19
PROVIDERS: Visit Provider Obstetrics & Gynecology
DX: Z34.83 Encounter for supervision of other normal pregnancy, third trimester (principal)
CPT/HCPCS: 82731

== ENCOUNTER → 2019-04-24 | Outpatient (CLI) | payer MEDICAID, SELFPAY | END | disposition home or self-care (01) | LOC: LABSPEC 13:05 | PROVIDERS: Visit Provider Obstetrics & Gynecology | DX: Z36.85 Encounter for antenatal screening for Streptococcus B (principal) | CPT/HCPCS: 87081 ==

== ENCOUNTER 2019-05-17 04:20 | Inpatient (IN) | payer MEDICAID, SELFPAY ==
--- NOTE | 2019-05-17 05:00 | NURSING ---
Taking over pt care at this time.
[2019-05-17] MEDS: Lactated Ringers 1,000 ML 50 ML IV ×2 (05:03→06:05)
[2019-05-17 05:21] VITALS: BMI 25.8
[2019-05-17 05:21] LABS: Absolute Lymphocyte Count 2.42 X10^3/uL (0.83-4.51); Absolute Neutrophil Count 8.2 X10^3/uL (2.0-7.7); Basophil# 0.04 X10^3/uL; Basophil% 0.3 % (0-1); Eosinophil# 0.24 X10^3/uL; Hematocrit 34.3 % (37-47); Hemoglobin 11.3 g/dL (12.0-15.0); Lymphocyte # 2.42 X10^3/ul (4.0); Lymphocyte % 20.5 % (19-41); Mean Corp Hgb Conc 32.9 g/dL (32-36); Mean Platelet Vol. 10.1 fl (6.2-12.0); Monocyte# 0.82 X10^3/uL; Monocyte% 6.9 % (0-10); NRBC Flagged by Analyzer 0 % (0-5); Neutrophil # 8.22 X10^3/uL (2.7-7.7); Neutrophil % 69.8 % (47-70); Platelet Count 214 K/mm3 (150-450); RBC Distribution Width CV 13.4 % (11.6-14.6); RBC Distribution Width SD 44.2 fl (35.1-43.9); Red Blood Count 3.77 M/mm3 (4.2-5.4); White Blood Count 11.8 K/mm3 (4.4-11.0)
[2019-05-17 05:37] LABS: ROM Internal Control Test YES-OK TO RESULT pt. (Internal QC); ROM Patient Test Negative (Negative)
[2019-05-17] MEDS: fentaNYL-bupivacaine (epidural) 100 ML BAG EPIDURAL (06:05)
--- NOTE | 2019-05-17 07:20 | PN.OBGYN_ITS ---
Subjective: Patient presented in active labor during the night and progressed to 9 cm with no membranes noted. ROM test was done and was negative. I was called for delivery and upon examination no presenting part was noted. Ultrasound examination revealed breech presentation. Under ultrasound guidance and with continuous monitoring external cephalic version was performed without difficulty and rupture of membranes performed. Approximately 1500 cc of clear fluid was noted. Cervix now 8 cm 90% and head is -2 station. Anticipate spontaneous vaginal delivery. - Physical Exam Weight: 155 lb 6.4 oz Body Mass Index (BMI) 25.8 Laboratory Tests Past 24 Hrs 05/17/19 05/17/19 05/17/19 04:45 05:03 05:03 WBC 11.8 H RBC 3.77 L Hgb 11.3 L Hct 34.3 L MCV 91.0 MCH 30.0 MCHC 32.9 RDW Std Deviation 44.2 H RDW Coeff of Dora 13.4 Plt Count 214 MPV 10.1 Immature Gran % (Auto) 0.500 Neut % (Auto) 69.8 Lymph % (Auto) 20.5 Garfield % (Auto) 6.9 Eos % (Auto) 2.0 Baso % (Auto) 0.3 Absolute Neuts (auto) 8.2 H Absolute Lymphs (auto) 2.42 Absolute Nucleated RBC 0.00 Nucleated RBC % 0 Vag Amniotic Fld Detect Negative Blood Type A POSITIVE Antibody Screen NEGATIVE Medical Necessity - Tobacco Use Smoking Status: Current every day smoker
[2019-05-17] MEDS: Oxytocin 30 units/NS 500 ml 30 UNITS/500 ML IV.SOLN IV (09:20)
[2019-05-17] MEDS: Oxytocin 30 units/NS 500 ml 30 UNITS/500 ML IV.SOLN 334 UNITS IV (09:45)
--- NOTE | 2019-05-17 09:57 | PCM.OPRPT ---
Vaginal Delivery Maternal Presentation: Active Labor Amniotic Membrane Rupture Type: Artificial Amniotic Fluid Description: Clear Final RA: 05/29/19 Final RA Source: US <20 weeks Gestational age: 38 Weeks and 2 Days Date of Procedure: 05/17/19 Pre-Operative Diagnosis: IUP Post-Operative Diagnosis: IUP Surgery/ Procedure Performed: Vacuum Assisted Vaginal Delivery Type of Anesthesia: Epidural Description of Procedure: Spontaneous vaginal delivery of a viable male with Apgars of 8/9 from an occiput anterior presentation with clear amniotic fluid and normal three-vessel placenta. Kiwi vacuum used x1 gentle pull from low outlet to expedite delivery of the head due to heart tones in the 40s with pushing and contractions. No episiotomy or lacerations. Sponges okay. Delivery physician: Orville Temple MD. Presentation: Vertex - after external cephalic version from breech Placental Delivery Description: Spontaneous Placenta Disposition: [facility] Cord Vessel Description: 3 Vessels Cord Gases drawn per routine: ABG Cord Entanglement: None Estimated Blood Loss: 250 cc Infant A gender: Male (1 minute): 8 (5 minute): 9 Episiotomy Description: None Laceration: None Medications given after delivery: IV Pitocin Complications: None
--- NOTE | 2019-05-17 10:03 | DCINST_ITS ---
Discharge Activity: May Shower, May Take a Tub Bath May resume sexual activity in: 4-6 weeks Additional Activity Instructions:: Nothing in the vagina for 4-6 weeks. You may return to work/school in 6 weeks. Call your doctor if you observe: Fever of 101 or Higher, Inability to urinate, Inability to have a bowel movement, Using more than one pad per hour Additional Instructions: If you experience any of the following, contact your healthcare provider. * Bleeding that soaks a pad every hour for 2 hours * Unrelieved incision or abdominal pain * Swelling, redness, discharge or bleeding from your incision or episiotomy site * Your incision begins to separate * Problems urinating (including inability to urinate or burning while urinating). * Visual changes * Severe headache * Flu-like symptoms * Pain or redness in one of both of your breasts * Pain, warmth, tenderness or swelling in your legs, especially the calf area * Frequent nausea and vomiting * Symptoms of depression or anxiety If you experience any of the following, call 911 or go to the nearest Emergency Room. * Chest pain * Problems breathing * Seizure activity * Partial or complete paralysis of a body part, slurred speech, weakness or drooping of the face, or a sudden inability to walk or hold your balance Allergies/Adverse Reactions: Allergies paroxetine [From Paxil] Allergy (Verified 05/17/19 05:23) Unknown pt states make her feel comatose Medications to take at Discharge Fluticasone 110 Mcg [Flovent (SP)] 1 puff INHALATION DAILY 01/18/17 Albuterol IH (ProAir) [Proair Hfa (SP)Vent Pts] 1 puff INHALATION Q6H PRN PRN 05/17/19 Ondansetron HCl [Zofran] 4 mg PO PRN PRN 05/17/19 Vits [Prenatabs FA] 1 tab PO DAILY 05/17/19 Please Follow Up With: Orville Temple MD - [phone] When: Call to make an appointment with your doctor in 6 weeks. Test Results: Test results from this visit will be discussed in further detail at your follow- up appointment, if applicable.
[2019-05-17] MEDS: Oxytocin 30 units/NS 500 ml 30 UNITS/500 ML IV.SOLN 167 UNITS IV (10:15)
[2019-05-17 16:15] VITALS: BP 92/44; PULSE 63; RESP 20; TEMP 36.8; O2SAT 98
[2019-05-17 20:06] VITALS: BP 91/58; PULSE 86; RESP 16; TEMP 36.3
[2019-05-17 23:47] VITALS: BP 99/59; PULSE 72; RESP 16; TEMP 36.6
[2019-05-18] MEDS: Ibuprofen 100 MG/5 ML UDC 600 MG PO ×3 (03:29→15:02)
[2019-05-18 04:00] VITALS: BP 99/60; PULSE 69; RESP 18; TEMP 36.4
--- NOTE | 2019-05-18 04:54 | NURSING ---
Late entry: at 0300 this RN in room attempting to help pt breastfeed. Patient visibly uncomfortable being uncovered. Infant was vigorous at breast and trying to latch. Mother states that she is painful. This RN then medicated pt with liquid motrin as she states she cannot swallow pills. Patient took approximately 400mg of liquid motrin and then states she cannot take anymore. This RN then continued assisting mother with . This RN inquired about other children. Mother talking about children and states that she also cares for her older brother. This RN then asked if this baby resembles any of her other children and she states that the baby looks like her daughter. Patient is very attentive to , gazing and talking to him.
[2019-05-18 08:33] VITALS: BP 111/70; PULSE 65; RESP 16; TEMP 36.5; O2SAT 96
--- NOTE | 2019-05-18 09:16 | NURSING ---
Patient refused auscultation of posterior lung sounds. Anterior lung sounds clear and WNL.
--- NOTE | 2019-05-18 09:19 | NURSING ---
Patient using her own heating pad from home on low setting. K Pad offered and given. Patient reports it not working well enough for her pain. Advised patient that it is a safety issue using the heating pad in bed. Patient advised to keep the heating pad on low and to not use it while holding the infant. Advised patient that more frequent rounds will be done while she is using the heating pad to prevent wallis.
--- NOTE | 2019-05-18 09:53 | PCM.PN.OB ---
Subjective: PPD#1 Vacuum assisted vaginal delivery. Doing well. Breast and bottle feeding. No concerns voiced. - Physical Exam General: Alert, Oriented x3, Cooperative, No apparent distress HEENT: Atraumatic, EOMI Neck: Supple Extremities: No edema Neurological: Cranial nerves II-XII grossly intact Psych/Mental Status: Normal Affect, Appropriate Vital Signs Temp Pulse Resp BP Pulse Ox 97.7 F L 65 16 111/70 96 05/18/19 08:33 05/18/19 08:33 05/18/19 08:33 05/18/19 08:33 05/18/19 08:33 Oxygen Delivery Method Room Air Weight: 70.488 kg Body Mass Index (BMI) 25.8 Intake and Output for Last 24 Hours 05/16/19 05/17/19 05/18/19 23:59 23:59 23:59 Intake Total 730 / 730 Output Total 1750 / 1750 Balance -1020 / -1020 Medical Necessity - Tobacco Use Smoking Status: Current every day smoker Assessment/Plan PPD#1 Stable Continue care.
[2019-05-18 13:58] VITALS: BP 98/53; PULSE 84; RESP 18; TEMP 36.8; O2SAT 98
--- NOTE | 2019-05-18 15:08 | NURSING ---
Resource list given.
[2019-05-18 18:44] VITALS: BP 92/59; PULSE 91; RESP 16; TEMP 36.6; O2SAT 99
== END 2019-05-18 20:28 | disposition home or self-care (01) | DRG 560 ==
PROVIDERS: Admitting Provider Obstetrics & Gynecology; Referring Provider Obstetrics & Gynecology; Visit Provider Obstetrics & Gynecology
DX: O32.1XX0 Maternal care for breech presentation, not applicable or unspecified (principal); O99.334 Smoking (tobacco) complicating childbirth; Z3A.38 38 weeks gestation of pregnancy; Z37.0 Single live birth
CPT/HCPCS: 59025; 59050; 84112; 85025; 86850; 86900; 99218; J7120; G0378

== ENCOUNTER → 2019-08-17 | Outpatient (CLI) | payer MEDICAID, SELFPAY | END | disposition home or self-care (01) | PROVIDERS: Visit Provider Obstetrics & Gynecology | DX: Z12.4 Encounter for screening for malignant neoplasm of cervix (principal); Z11.3 Encounter for screening for infections with a predominantly sexual mode of transmission ==

== ENCOUNTER → 2019-09-30 12:46 | Outpatient (CLI) | payer MEDICAID, SELFPAY ==
--- NOTE | 2019-08-28 16:44 | PCM.HPOB.BLA ---
History and Physical Date of Admission: 08/31/19 GAIL VICENTE Age: 29 Date of : 1990 HISTORY OF PRESENT ILLNESS: On 08/17/2019, Gail Vicente, a 29 year old female 2 1 0 0 3, presented for: -- Preoperative History and Physical Tia presents to discuss control vs tubal. She did sign federal consent in March. She may also want Depo to help with painful menses. LMT As above. Here for pp exam, but very late. Delivered on 05/17/19 Vacuum assisted vaginal delivery. Baby in hospital for about a month due to viral meningitis. She is bottle feeding. Had planned to have her tubes tied. Federal consent for tubal signed 04/03/2019 More interested in tubal now than hormonal contraception. Aware may resume DepoProvera with BTO in place if still desires. Would like to start on DepoProvera today also. EB ALLERGIES: Paxil and Nausea MEDICATIONS HISTORY: Current medications prescribed by our practice are: 1. Nicorette 2 mg gum, as directed for smoking cessation 2. ondansetron 4 mg disintegrating tablet, 1 po q 4 hr prn Patient is also takin. Flovent HFA 110 mcg/actuation aerosol inhaler 2. ProAir HFA 90 mcg/actuation aerosol inhaler REVIEW OF SYSTEMS: GENERAL - Denies fever, or chills SKIN - Denies skin changes EYES - Denies visual changes EARS - Denies difficulty hearing NOSE - Denies nasal congestion or bleeding MOUTH - Denies sore throat or difficulty swallowing NECK - Denies pain or swelling RESPIRATORY - Denies shortness of breath or wheezing CARDIOVASCULAR - Denies palpitations or chest pain GASTROINTESTINAL - Denies nausea, vomiting, diarrhea, constipation GENITOURINARY - vaginal discharge MUSCULOSKELETAL - Denies joint or muscle pain NEUROLOGICAL - Denies localized numbness or weakness PSYCHIATRIC - Denies depression or anxiety ENDOCRINE - Denies heat or cold intolerance, weight loss or gain HEMATO-IMMUNOLOGIC - Denies excessive bleeding with cuts PAST HISTORY: Breast/Ovarian/Colon Cancers - Mother had Breast Cancer Infections - Chicken pox Illnesses - hiatal hernia, seizures Accidents - None History of Abnormal PAPS - YES Hospitalizations - Childbirth by ; SURGICAL HISTORY: 1. [place] Teeth 2. 08/07, Endoscopy 3. All teeth extracted rotting MENSTRUAL HISTORY: LMP Known?- PostpartumAmount/Duration - 3 days, Regularity - Irregular, Frequency - variable days, Prior Menses - 06/08/2013, LMP - 08/22/18, Age Onset Menarche - 13 PAST PREGNANCIES: Total Pregnancies - 4; Full Term Pregnancies - 2; Premature - 1; Abortions, Induced - 0; Abortions, Spontaneous - 0; Ectopics - 0; Multiple Births - 0; Living Children - 3 FAMILY HISTORY: Mother - Cancer; Mother - Myocardial infarction; SOCIAL HISTORY: Alcohol Use - denies drinking Smoking - 10/24 PPD, trying to quit Diet - balanced Diet Lifestyle - high stress lifestyle and single Exercise - minimal Seat Belt Use - always Employer - unemployed Illicit Drug Use - denies use of street drugs Sexual Activity - ? Residence - Lives with SO Place of - [place] Spouse-Sig Other Name - Carl Unangst Spouse-Sig Other Occupation - [employer] Spouse-Sig Other Phone No - [phone] Children Name(s) - Alejandro(Aguilar), Loco (MICHELE), Calos (MICHELE), Zulay Control - - PHYSICAL EXAMINATION BP- 110/70 Sitting, Right arm, regular cuff Weight- 130.00 lbs Height- 63.50 inch BMI:22.71 CONSTITUTIONAL - NAD, well nourished, and well developed SKIN - Multiple tattoos. HEENT - Normocephalic, PERRLA, EOMI NECK - no nuchal rigidity LUNGS - clear to auscultation CARDIAC - normal s1, normal s2, no s3 BREAST - deferred, did not change ABDOMEN - no masses, no tenderness EXTREMITIES - No edema or calf tenderness NEUROLOGICAL - Cranial nerves II-XII grossly intact PSYCHIATRIC - alert, oriented to time, place and and person ASSESSMENT: 1. Other Specified Counseling PLAN BY DIAGNOSIS: 1. Other Specified Counseling Reviewed options for contraception. Wanting Bilateral tubal ligation. Reviewed R,B,A and plan for bilateral salpingectomy. Discussed anticipated preop, operative and postop recovery including activity restriction. Federal consent for tubal ligation signed in March 2019 Schedule laparoscopic bilateral salpingectomy RTO in 2 wk after surgery for postop incision check.
== END ==
PROVIDERS: Referring Provider Obstetrics & Gynecology; Visit Provider Obstetrics & Gynecology
DX: Z53.29 Procedure and treatment not carried out because of patient's decision for other reasons (principal)

== ENCOUNTER → 2020-02-25 | Outpatient (CLI) | payer MEDICAID, SELFPAY ==
[2020-02-25 18:55] LABS: Progesterone Level 1.04 ng/mL (See Comment)
[2020-02-25 19:11] LABS: hCG Titer Quant., Serum < 1 mIU/mL (1-3)
== END | disposition home or self-care (01) ==
LOC: LABSPEC 17:41
PROVIDERS: Visit Provider Obstetrics & Gynecology
DX: Z30.014 Encounter for initial prescription of intrauterine contraceptive device (principal)
CPT/HCPCS: 84144; 84702

== ENCOUNTER 2020-04-04 10:01 | Day surgery (SDC) | payer MEDICAID, SELFPAY ==
[2020-03-31 15:59] LABS: Hematocrit 44.9 % (37-47); Hemoglobin 14.6 g/dL (12.0-15.0); Mean Corp Hgb Conc 32.5 g/dL (32-36); Mean Corpuscular Volume 92.4 fL (81-99); Mean Platelet Vol. 9.4 fl (6.2-12.0); Platelet Count 375 K/mm3 (150-450); RBC Distribution Width CV 13.3 % (11.6-14.6); RBC Distribution Width SD 45.6 fl (35.1-43.9); Red Blood Count 4.86 M/mm3 (4.2-5.4); White Blood Count 10.9 K/mm3 (4.4-11.0)
[2020-03-31 16:19] LABS: Internal QC Validated? YES +Cl - CLEAR BKGD; Pregnancy, Serum, hCG Quali. NEGATIVE Negative
[2020-03-31 16:22] LABS: Prothrombin Time (Protime)PT. 12.5 SECONDS (11.7-14.9)
[2020-03-31 16:27] LABS: AST(SGOT) 11 U/L (15-37); Alanine Aminotransfer ALT/SGPT 21 U/L (13-56); Albumin, Serum 3.8 g/dL (3.2-5.0); Alkaline Phosphatase 93 U/L (45-117); Bilirubin, Direct 0.09 mg/dL (0.00-0.30); Globulin 3.8 g/dL (2.2-4.2); Protein, Total 7.6 g/dL (6.4-8.2)
--- NOTE | 2020-04-02 12:33 | PCM.HP.BLA ---
History and Physical Date of Admission: 04/04/20 Surgical History and Physical Tia Jules, a 29 year old female 2 1 0 0 4, presents for bilateral salpingectomy on April 04, 2020 at 11:45. -- Desires Permanent Sterilization -- She has considered this form of control for quite some time. Aware of other non-permanent BC options and declines. MEDICATIONS HISTORY: Patient is also takin. Flovent HFA 110 mcg/actuation aerosol inhaler 2. ProAir HFA 90 mcg/actuation aerosol inhaler 3. Zofran 4 mg tablet, One pill by mouth twice a day prn ALLERGIES: NKDA, No Known Drug Allergies, Paxil and Nausea Infections - Chicken pox Illnesses - hiatel hernia, seizures Accidents - None Hospitalizations - Childbirth by [facility]; Review of Systems: GENERAL - Denies fever, or chills SKIN - Denies skin changes EYES - Denies visual changes EARS - Denies difficulty hearing NOSE - Denies nasal congestion or bleeding MOUTH - Denies sore throat or difficulty swallowing NECK - Denies pain or swelling RESPIRATORY - Denies shortness of breath or wheezing CARDIOVASCULAR - Denies palpitations or chest pain GASTROINTESTINAL - Denies nausea, vomiting, diarrhea, constipation GENITOURINARY - Denies dysuria, frequency of urination, incontinence of urine MUSCULOSKELETAL - Denies joint or muscle pain NEUROLOGICAL - Denies localized numbness or weakness PSYCHIATRIC - Denies depression or anxiety ENDOCRINE - Denies heat or cold intolerance, weight loss or gain HEMATO-IMMUNOLOGIC - Denies excesive bleeding with cuts SOCIAL HISTORY: Alcohol Use - denies drinking Smoking - /4 PPD, trying to quit Diet - balanced Diet Lifestyle - high stress lifestyle and single Exercise - minimal Seat Belt Use - always Employer - [employer] Illicit Drug Use - denies use of street drugs Sexual Activity - [employer] Residence - Lives with SO Place of - [place] Children Name(s) - Alejandro(Aguilar), Loco (MICHELE), Calos (MICHELE), Zulay Control - DEPO PROVERA FAMILY HISTORY: Paternal history of unknown. Mother: breast cancer., sudden cardiac and massive MN. MENSTRUAL HISTORY: LMP Known?- DefiniteAmount/Duration - 3 weeks, Regularity - Irregular, Frequency - variable days, Prior Menses - 06/08/2013, LMP - 03/14/20, Age Onset Menarche - 13 PAST PREGNANCIES: Total Pregnancies - 4; Full Term Pregnancies - 2; Premature - 1; Abortions, Induced - 0; Abortions, Spontaneous - 0; Ectopics - 0; Multiple Births - 0; Living Children - 4 SURGICAL HISTORY: 1. [place] Teeth 2. 08/07, Endoscopy 3. All teeth extracted ; rotting PHYSICAL EXAM BP- 122/68 Sitting, Right arm, regular cuff Weight- 143.60775 lbs Height- 63.5 inch BMI:24.99 CONSTITUTIONAL - NAD, well nourished, and well developed SKIN - Multiple tattoos. HEENT - Normocephalic, PERRLA, EOMI NECK - no nuchal rigidity LUNGS - clear to auscultation CARDIAC - normal s1, normal s2, no s3 ABDOMEN - no masses, no tenderness EXTREMITIES - No edema or calf tenderness NEUROLOGICAL - Cranial nerves II-XII grossly intact PSYCHIATRIC - alert, oriented to time, place and and person ASSESSMENT/PLAN: 1. Initiation Contraception Discussed options for BC and pt desires proceeding with L/S bilateral salpingectomy. Discussed RBAs and all questions answered. Wants to continue Depoprovera to minimize menses and dysmenorrhea. Procedure Criteria Procedure Type: Elective Procedure Essential: No COVID Risk Discussion: The surgeon/proceduralist and patient have discussed in detail the risk of exposure to and/or potential harm posed by the COVID-19 virus with having a surgery/procedure at this time versus the risk of delaying the surgery/procedure. It is not possible to know either the risk of delaying the surgery or procedure or chance of getting an infection with perfect accuracy, but a joint decision was made between the patient and the surgeon/proceduralist to proceed at this time with the scheduled surgery/procedure as indicated on the consent form.
[2020-04-03 13:28] LABS: Probe Check PASS; Specimen Processing Control PASS
[2020-04-04] VITALS (7 sets, daily range): BP systolic 101–137; BP diastolic 66–91; PULSE 66–93; RESP 16–18; TEMP 36.1–37.2; O2SAT 98–100; BMI 23.6
[2020-04-04 10:35] LABS: Internal QC Validated? YES +Cl - CLEAR BKGD; Pregnancy, Urine Negative Negative
[2020-04-04] MEDS: Lactated Ringers 1,000 ML 100 ML IV (10:43)
--- NOTE | 2020-04-04 10:53 | PCM.OPRPT ---
Report of Operation Date of Procedure: 04/04/20 Pre-Operative Diagnosis: Desires Permanent Sterilization Post-Operative Diagnosis: Desires Permanent Sterilization Surgery/Procedure Performed:: Laparoscopic Bilateral Salpingectomy Description of Surgical Findings:: Normal pelvis recycling program manager: Gunner Littlejohn Type of Anesthesia:: General - Endotracheal Anesthesiologist: Leonarda Brown Specimen's removed: Bilateral fallopian tubes Estimated Blood Loss (mL): Minimal Fluids Replaced: Crystalloid Description of Procedure: Surgeon: Orville Temple MD, FACOG Indications: This is a 29 year old patient who has the above diagnosis. She has considered sterilization for quite some time. She is aware of the permanent nature of the procedure, the failure rate of 1-2%, and the availability of other nonpermanent control options. All questions were answered to consider the patient well-informed. Procedure: The patient was taken to the operating room where after induction of general anesthesia, she was placed in the dorsolithotomy position and prepped and draped in the usual sterile fashion. The bladder was drained of approximately 50 cc of clear yellow urine with a catheter. Anterior cervix was grasped with the tenaculum. Conn cannula was placed and attention was turned toward the laparoscopic portion of the procedure. Approximately 20 cc of half percent ropivacaine was injected subumbilically, suprapubically and midway between. A 5 mm bladeless trocar was placed subumbilically and intraperitoneal placement confirmed. After CO2 insufflation was complete, a 5 mm bladeless trocar was introduced suprapubically. The above findings were noted. A 5 mm bladeless port was then placed midway between these 2 ports for tubal manipulation. Each fallopian tube was identified to its fimbriated end and an Enseal device was used to divide the mesosalpinx to the uterus. Tubes were removed through the lower 5 mm port. The peritoneal cavity and upper abdomen were examined and noted to be normal. Photographs were taken. Laparoscopic instruments with as much CO2 gas as possible were removed and incisions were closed with interrupted 4-0 Monocryl suture. Steri-Strips placed across the incision. Vaginal instruments were removed. The patient tolerated the procedure well was taken to recovery room in satisfactory condition and sponge instrument and needle counts were all reportedly correct. Estimated blood loss for the case was minimal. There were no apparent complications of the surgery. Specimens to pathology was bilateral tubes Grafts/Implants Used: None - Complications None - Admit VTE Documentation VTE Present on Admission: Yes VTE Mechan Device Prophylaxis: SCD's
--- NOTE | 2020-04-04 10:55 | PCM.DC.TUB ---
Discharge Diet: No Restrictions - Increase fluid intake for the next 48 hours. Discharge Activity: Return to Normal Activity, May Drive - when you are no longer taking pain/narcotic medicines., May Shower, May Take a Tub Bath May resume sexual activity in: 2 weeks Additional Activity Instructions:: Ambulate often the next week after surgery. Nothing in the vagina for 5 days. Call your doctor if your incision/area has: Continuous Slow Oozing, Sudden Increased Bleeding, Increased Pain/ Swelling, Increased Redness, Foul Smelling Discharge Call your doctor if you observe: Fever of 101 or Higher, Inability to urinate, Inability to have a bowel movement, Using more than one pad per hour Allergies/Adverse Reactions: Allergies paroxetine [From Paxil] Allergy (Verified 04/04/20 10:29) Unknown pt states make her feel comatose Medications to take at Discharge Fluticasone 110 Mcg [Flovent (SP)] 1 puff INHALATION DAILY 01/18/17 Albuterol IH (ProAir) [Proair Hfa (SP)Vent Pts] 1 puff INHALATION Q6H PRN PRN 05/17/19 Acetaminophen [Tylenol Extra Strength] 500 mg PO Q4H PRN PRN 08/27/19 Famotidine/Ca Carb/Mag Hydrox [Tums Dual Action Tablet Chew] 1 ea PO PRN PRN 08/27/19 Loratadine 0.5 - 1 tab PO PRN PRN 03/28/20 Ondansetron HCl [Zofran] 4 mg PO PRN PRN 03/28/20 Oxycodone [Oxyir] 5 mg PO Q6H PRN PRN 7 Days #7 tablet 04/04/20 The following prescriptions were given: Oxycodone [Oxyir] 5 mg PO Q6H PRN PRN 7 Days #7 tablet PRN Reason: Pain Score 6-10/10 Transmission Status: Sent to [facility] Primary Care Physician: Care Physician,No Primary [Primary Care Provider] - Test Results: Test results from this visit will be discussed in further detail at your follow-up appointment, if applicable. Please Follow Up With: Orville Temple MD - [phone] When: 2 to 3 weeks
[2020-04-04] MEDS: Ropivacaine 0.5% 30 ML Vial (11:30)
--- NOTE | 2020-04-04 11:40 | FALS_PTH ---
PATIENT: NICOLAS DUTTA [place] [facility] [place][id number] AGE/SX: 29/F ROOM: RE04/04/[address]: Dr. Orville Temple MD : 1990 BED: DIS: 04/04/2020 SPEC #: [id number] RECD: 04/04/20 13:00 STATUS: MAGDA ARMAAN #: [id number] CHARLES: 04/04/20 11:[address]: Orville Temple DEPT: SURGICAL PATHOLOGY RECD BY: Karie Cuevas ENTERED: 04/05/20 09:03 SP TYPE: FALL TUBES OTHR DR: No Primary Care Phys Tissues: Fallopian tube Procedures: Surgery Specimen Level II HEADER OPERATION: Laparoscopic salpingectomy bilateral PRE-OP DIAGNOSIS: Initiation contraception TISSUE SUBMITTED: Bilateral fallopian tubes MICROSCOPIC DIAGNOSIS Bilateral fallopian tubes, salpingectomy: Bilateral fallopian tubes including fimbrial ends, no pathologic diagnosis. A paratubal cyst. SJ:duy 04/06/20 MICROSCOPIC DESCRIPTION Slides are reviewed. GROSS DESCRIPTION Received in fixative is one container labeled with the patient's name and designated bilateral fallopian tubes. The specimen consists of bilateral fallopian tubes including fimbrial ends measuring 5.5 cm in length and 0.5 cm in diameter and 6 cm in length and 0.5 cm in diameter. The fallopian tubes are not identified as right or left. Sections reveal unremarkable cut surfaces. A paratubal cyst is noted adjacent to one fallopian tube filled with clear fluid measuring 1 cm in greatest dimension. Silhouette Artist sections are submitted in two cassettes with each cassette containing one fallopian tube. Cassette 1 also contains the paratubal cyst. / ABIDA:duy 04/05/20 TC:5 CPT: 00329 x2
== END 2020-04-04 13:41 | disposition home or self-care (01) ==
LOC: SDC 10:02 → AC 13:05
PROVIDERS: Anesthesiology; Referring Provider Obstetrics & Gynecology; Visit Provider Obstetrics & Gynecology
PROC: (CPT 58661; principal; 2020-04-04 11:25)
DX: Z30.2 Encounter for sterilization (principal); N83.8 Other noninflammatory disorders of ovary, fallopian tube and broad ligament; F17.200 Nicotine dependence, unspecified, uncomplicated; K21.9 Gastro-esophageal reflux disease without esophagitis; D64.9 Anemia, unspecified; J45.909 Unspecified asthma, uncomplicated; Z11.59 Encounter for screening for other viral diseases; Z79.51 Long term (current) use of inhaled steroids
CPT/HCPCS: 58661; 80076; 81025; 84703; 85027; 85610; 85730; 86850; 86900; 86901; 87635; 88302; G2023; J7120; C1760; J2405; U0003

== ENCOUNTER → 2020-07-26 | Outpatient (CLI) | payer MEDICAID, SELFPAY ==
[2020-04-04 10:34] VITALS: BMI 23.6
--- NOTE | 2020-07-26 | IMM_PTH ---
PATIENT: NICOLAS DUTTA LOC: [facility] U#:[id number] AGE/SX: 29/F ROOM: RE07/26/[address]: Dr. Edis Taylor MD : 1990 BED: DIS: 07/26/2020 SPEC #: [id number] RECD: 07/28/20 11:56 STATUS: MAGDA REQ #: [id number] CHARLES: 07/26/20 00:[address]: Edis Taylor DEPT: IMMUNOHISTOCHEMISTRY RECD BY: Zaira Garcia ENTERED: 07/28/20 11:57 SP TYPE: IMMUNO OTHR DR: No Primary Care Phys Tissues: A - Uterine cervix, NOS Procedures: p16 (initial) KI-67 (add) PHYSICIAN & INSTITUTION [place] [address] SPECIMEN INFORMATION: Tissue Source: A - Cervical biopsy Clinical Info: LGSIL, mild dysplasia Specimen Number: [id number] CPT code: 18217, 79052 METHODOLOGY: Deparaffinized sections of prefer/formalin-fixed tissue or PAP/DQ stained slides are incubated with monoclonal/polyclonal antibodies/oligonucleotide probes. Localization is made via biotin free immunoperoxidase method. Appropriate controls are performed and reacted as expected. Results on target cell population are indicated in the following table: RESULTS: ANTIBODY / CLONE RESULT Block A P16 (E6H4) negative Ki-67 (30-9) negative These tests were developed and their performance characteristics determined by [facility]. They may not have been cleared or approved by the U.S. Food and Drug Administration. The FDA has determined that such clearance or approval is not necessary. The above immunohistochemical/dualISH markers are ordered and reviewed by the Pathologist. INTERPRETATION: A. Cervical biopsy: No evidence of HPV change. AM:duy 07/29/20
--- NOTE | 2020-07-26 10:30 | CER_PTH ---
PATIENT: NICOLAS DUTTA LOC: [facility] U#:[id number] AGE/SX: 29/F ROOM: RE07/26/[address]: Dr. Edis Taylor MD : 1990 BED: DIS: 07/26/2020 SPEC #: [id number] RECD: 07/26/20 15:52 STATUS: MAGDA ARMAAN #: [id number] CHARLES: 07/26/20 10:[address]: Edis Taylor DEPT: SURGICAL PATHOLOGY RECD BY: Karie Cuevas ENTERED: 07/27/20 10:24 SP TYPE: CERV OTHR DR: No Primary Care Phys Tissues: A - Uterine cervix, NOS B - Endocervical Procedures: Surgery Specimen Level IV HEADER OPERATION: Colposcopy PRE-OP DIAGNOSIS: LGSIL, mild dysplasia TISSUE SUBMITTED: A - Cervical biopsy, B - ECC MICROSCOPIC DIAGNOSIS A. Cervix, biopsy: Focal HPV change suspected. See comment. B. Endocervix, curettings: Scant strips of benign superficial endocervix. No evidence of dysplasia. AM:duy 07/28/20 COMMENT A. Results from immunohistochemistry ([id number]) for surrogate HPV marker (p16) will be reported separately. Reference is made to the patient's cervical biopsy from 12/14/15 ([id number]) in which mild dysplasia with HPV change was identified. MICROSCOPIC DESCRIPTION Slides are reviewed. GROSS DESCRIPTION A - Received in fixative is one container labeled with the patient's name and designated cervical biopsy. The specimen consists of multiple irregular fragments of light bennett soft tissue that in aggregate measure 1 x 0.6 x 0.1 cm. The specimen is totally submitted in one cassette. B - Received in fixative is one container labeled with the patient's name and designated endocervix. The specimen consists of light to dark bennett mucoid material aggregating to 2.3 x 2 x <0.1 cm. The specimen is totally submitted in one cassette. / AM:duy 07/27/20 TC:3 CPT: 77644 x2
[2020-07-30 03:06] LABS: Chlamydia By Nucleic Acid AMP Negative (Negative)
[2020-07-30 14:03] LABS: Gonococcus By Nucleic Acid AMP Negative (Negative)
== END | disposition home or self-care (01) ==
LOC: LABSPEC 13:53
PROVIDERS: Visit Provider Obstetrics & Gynecology
DX: N87.0 Mild cervical dysplasia (principal); Z11.3 Encounter for screening for infections with a predominantly sexual mode of transmission
CPT/HCPCS: 87491; 87591; 88305; 88341; 88342

== ENCOUNTER 2021-08-07 09:33 | Emergency (ER) | payer MEDICAID, SELFPAY ==
[2021-08-07 09:34] VITALS: BP 119/86; PULSE 87; RESP 16; TEMP 36.1; O2SAT 100; BMI 23.4
--- NOTE | 2021-08-07 10:08 | RAD_ITS ---
STUDY: X-RAY - RIGHT HAND, ATTENTION FIFTH FINGER REASON FOR EXAM: Pain of right fifth finger, right fifth finger injury. TECHNIQUE: 3 view(s) of the finger were obtained. COMPARISON: None. FINDINGS: Normal metacarpal head. Normal metacarpophalangeal joint. Normal proximal phalanx. Normal middle phalanx. Normal distal phalanx. Normal proximal interphalangeal joint. Normal distal interphalangeal joint. RAD/Finger(s) Min 2 Views IMPRESSION: Normal x-ray examination of the right fifth finger. Electronically Signed: Lenny Jaar MD at 11:07 EDT Tel , Service support ,
--- NOTE | 2021-08-07 10:09 | EDS_ITS ---
HPI HPI - Fall History of Present Illness Chief Complaint: Fall Informant: patient Occured/Mechanism Occurred: Today Pain/Injury Pain Location: upper extremity Quality of Pain: Aching Current Severity: Mild Maximum Severity: Mild Associated Symptoms Associated Symptoms: Negative for Parasthesias, Weakness, Loss of function, Inability to ambulate, Loss of consciousness and Amnesia Narrative Narrative: 30-year-old female states she tripped and fell today injuring her right upper extremity and right small finger. She denies any LOC or hitting her head. She denies any recent illness. She previously had broken her right upper extremity but never needed surgery. Prior similar symptoms: No Recent Illness/Hospitalization: No PFSH PFSH Medical History (Updated 08/07/21 @ 12:[address] Wes Elise MD) GERD (gastroesophageal reflux disease) Home Medications fluticasone propionate [Flovent (SP)] 1 puff INHALATION DAILY 01/18/17 [History Last Taken 01/14/17 09:00] albuterol sulfate 1 puff INHALATION Q6H PRN PRN 05/17/19 [History Last Taken Unknown] famotidine-Ca carb-mag hydrox 1 ea PO PRN PRN 08/27/19 [History Last Taken Unknown] ondansetron HCl 4 mg PO PRN PRN 03/28/20 [History Last Taken Unknown] hydroxyzine pamoate 25 mg PO DAILY 08/07/21 [History Last Taken Unknown] omeprazole 20 mg PO DAILY 08/07/21 [History Last Taken Unknown] Allergy/AdvReac Type Severity Reaction Status Date / Time paroxetine [From Paxil] Allergy Unknown Verified 04/04/20 10:29 citalopram [From Celexa] AdvReac Upset Verified 08/07/21 09:35 Stomach Surgical History (Updated 08/07/21 @ 10:37 by Lubna Wilson) History of cholecystectomy History of tubal ligation Social History Smoking Status: Current every day smoker tobacco type: cigarettes ROS ROS ED ROS Narrative Denies recent illness. Review of Systems ROS Unobtainable: Denies due to encephalopathy Constitutional Constitutional ED: Denies fever(s) Eyes Eyes: Denies change in vision ENT ENT ED: Denies ear pain or sore throat Cardiovascular Cardiovascular: Denies chest pain Respiratory/Chest Respiratory/Chest: Denies dyspnea Gastrointestinal Gastrointestinal: Denies abdominal pain, diarrhea or vomiting Genitourinary Genitourinary ED: Denies dysuria or hematuria Musculoskeletal Musculoskeletal: Denies myalgias Integumentary Denies rash Neurologic Neurologic: Denies headache(s) Psychiatric Psychiatric: Denies depression Endocrine Endocrinology: Denies polyuria Hematologic/Lymphatic Hematologic/Lymphatic: Denies easy bruising Allergic/Immunologic Allergic/Immunologic ED: Denies urticaria EXAM Physical Exam Narrative Exam Narrative: 30-year-old no acute distress. Vital signs stable afebrile. H EENT exam unremarkable. Atraumatic. Pupils round reactive light. Extra motions are intact. C-spine nontender. Trachea midline. Lungs clear to auscultation. Chest wall nontender. Abdomen soft nontender. Pelvic girdle intact. Extremities moves all 4. Neurovascular intact. No deformity. Tenderness right upper arm. Right small finger. She is able to flex extend all digits of the hand. She complains of tenderness to the right small finger. Neurologic exam normal. Back nontender. GCS 15. Const Vital Signs: 08/07/21 09:34 08/07/21 10:36 Temperature 96.9 F L Temperature Source Temporal Pulse Rate 87 Respiratory Rate 16 Respiratory Effort Normal Non-Labored Respiratory Depth Normal Respiratory Pattern Normal Blood Pressure 119/86 H Blood Pressure Mean 97 Pulse Ox 100 Oxygen Delivery Method Room Air Room Air Positive well nourished and well developed; Negative for obese, cachectic, contractures or unkempt General Appearance ED: well developed and NAD; Negative for unkempt, cachectic o r contractures Nutritional Appearance: Negative for cachectic or obese HEENT Reports normocephalic atraumatic; Negative for trauma or tenderness Eyes PERRL and EOMs intact bilaterally Neck full ROM, no lymphadenopathy and supple General: Negative for tenderness Chest Wall inspection of chest normal and palpation of chest normal Resp normal respiratory effort, no retractions and clear to auscultation bilaterally Auscultation: Negative for rales, rhonchi or wheezes Cardio regular rate, regular rhythm, S1 normal heart sound, S2 normal heart sound and no murmurs GI non-tender, non-distended and no masses Auscultation: normoactive bowel sounds Palpation: soft; Negative for guarding or rebound tenderness present Back/Spine no CVA tenderness Cervical Spine: Negative for cervical spine tenderness Thoracic Spine / Upper Back: Negative for thoracic spinal tenderness Lumbar Spine / Lower Back: Negative for lumbar spinal tenderness or paraspinal muscle tenderness Extremity full ROM Extremity Narrative: Tenderness right upper arm. Neuro oriented x3, CN's II-XII intact bilaterally, moves all extremities and no focal motor deficits Sensorium / Orientation: alert, oriented to person, oriented to place and oriented to time; Negative for orientation impaired, confused, lethargic or stuporous Motor Exam: strength 5/5 throughout Psych mental status grossly normal Appearance: Negative for unkempt Skin Lesions: no lesions Rashes: no rashes and No rashes noted MDM MDM MDM Narrative Medical decision making narrative: Young female tripped and fell or lost her balance and fell complaining of right upper extremity right small finger pain x- rays being obtained. She did not want any pain medication. Repeat exam at 1252 patient is doing well she be discharged home. Tylenol and/or Motrin for pain. Ice to all sore areas. Radiography Diagnostic Testing: Clinical Impression(s) from Imaging Studies Finger X-Ray 08/07/21 10:08 IMPRESSION: Normal x-ray examination of the right fifth finger. Electronically Signed: Lenny Jara MD at 11:07 EDT Tel , Service support , Humerus X-Ray 08/07/21 10:20 IMPRESSION: Normal x-ray examination of the right humerus. Electronically Signed: Lenny Jara MD at 10:55 EDT Tel , Service support , Right humerus x-ray 2 views interpreted by self and radiologist shows no acute abnormality. No fracture or dislocation. X-ray right small finger 3 views interpreted by myself and radiologist again shows no acute abnormality. No fracture nor dislocation. I did go over the films with the patient. Discharge Plan Triage Chief Complaint: Fall ED Provider: Wes Elise Dx/Rx/DC Orders Clinical Impression: Contusion of right upper extremity Instructions: Bruises (Contusions) Prescriptions: No Action Flovent HFA 1 INHALER inhaler 1 puff inhalation DAILY RF: 0 albuterol sulfate 1 PUFF inhaler 1 puff inhalation Q6H PRN PRN (Reason: Asthma) RF: 0 famotidine-Ca carb-mag hydrox 1 EACH tablet,chewable 1 ea PO PRN PRN (Reason: Indigestion) RF: 0 ondansetron HCl 4 MG tablet 4 mg PO PRN PRN (Reason: Nausea) RF: 0 omeprazole 40 mg capsule,delayed release(DR/EC) 20 mg PO DAILY RF: 0 hydroxyzine pamoate 25 mg capsule 25 mg PO DAILY RF: 0 Primary Care Provider: Donald Colon Referrals: Donald Colon MD [Primary Care Provider] - 1 Week if not improving Activity Restrictions/Additional Instructions: Ice to all sore areas. Your x-rays were normal. Nothing broken or dislocated. Motrin for pain and swelling and Tylenol for pain. Follow-up if not improving. Disposition Disposition: Home, Self Care
--- NOTE | 2021-08-07 10:20 | RAD_ITS ---
STUDY: X-RAY - RIGHT HUMERUS REASON FOR EXAM: Right upper arm pain and tingling in, right upper arm injury. TECHNIQUE: 2 view(s) of the humerus. COMPARISON: None. FINDINGS: Normal visualized humerus. There is no demonstrated fracture or osseous destructive process. There is no demonstrated soft tissue abnormality. RAD/Humerus min 2 Views IMPRESSION: Normal x-ray examination of the right humerus. Electronically Signed: Lenny Jara MD at 10:55 EDT Tel , Service support ,
[2021-08-07 12:58] VITALS: PULSE 84; RESP 16; O2SAT 100
== END 2021-08-07 12:58 | disposition home or self-care (01) ==
PROVIDERS: Emergency Provider Emergency Medicine; PCP Family Medicine
DX: S40.021A Contusion of right upper arm, initial encounter (principal); K21.9 Gastro-esophageal reflux disease without esophagitis; F17.210 Nicotine dependence, cigarettes, uncomplicated; Z79.899 Other long term (current) drug therapy; W01.0XXA Fall on same level from slipping, tripping and stumbling without subsequent striking against object, initial encounter; Y93.89 Activity, other specified; Y92.89 Other specified places as the place of occurrence of the external cause; Y99.8 Other external cause status
CPT/HCPCS: 73060; 73140; 99282

== ENCOUNTER → 2021-08-16 | Outpatient (CLI) | payer MEDICAID, SELFPAY ==
[2021-08-23 12:02] LABS: HPV APTIMA, High Risk Negative (Negative)
[2021-08-23 12:03] LABS: HPV Reflexed? YES, CHARGE PATIENT
== END | disposition home or self-care (01) ==
LOC: LABSPEC 12:11
PROVIDERS: PCP Family Medicine; Visit Provider Obstetrics & Gynecology
DX: Z12.4 Encounter for screening for malignant neoplasm of cervix (principal)
CPT/HCPCS: 87624; 88175; G0145

== ENCOUNTER 2022-06-06 15:11 | Outpatient (CLI) | payer MEDICAID, SELFPAY ==
[2022-06-06 15:39] VITALS: BP 115/79; PULSE 105; RESP 16; TEMP 36.3; O2SAT 98; BMI 26.6
[2022-06-06] MEDS: 0.9% Saline Lock 10 ML Syringe IV ×3 (15:48→16:01)
[2022-06-06] MEDS: BEBTELOVIMAB 175 MG/2 ML VIAL IV (15:58)
[2022-06-06 16:24] VITALS: BP 108/68; PULSE 86; RESP 16; TEMP 36.6; O2SAT 99
[2022-06-06 16:57] VITALS: BP 112/59; PULSE 88; RESP 16; TEMP 37.1; O2SAT 98
== END 2022-06-06 16:58 | disposition home or self-care (01) ==
LOC: MS3OUT 15:12 → MS2 15:13
PROVIDERS: PCP Family Medicine; Visit Provider Nurse Practitioner Adult Health
DX: U07.1 COVID-19 (principal)
CPT/HCPCS: M0222; Q0222; A4216

== ENCOUNTER 2022-08-09 22:26 | Emergency (ER) | payer MEDICAID, SELFPAY ==
[2022-08-09 22:27] VITALS: BP 153/90; PULSE 10; RESP 16; TEMP 36.6; O2SAT 99; BMI 27.3
--- NOTE | 2022-08-09 22:48 | CT_ITS ---
INDICATION: RLQ pain. Right groin pain for 3 days, nausea and vomiting today. EXAMINATION: CT Abdomen And Pelvis W/ Contrast Injection TECHNIQUE: Helically acquired images were obtained of the abdomen and pelvis following IV contrast. 2-D reconstructions reviewed. A radiation dose optimization technique was used for this scan. IV Contrast dosage and agent: 100 mL Isovue-370 Oral contrast: None. COMPARISON: Contrast-enhanced CT abdomen and pelvis report from 01/20/15 FINDINGS: LOWER CHEST: No acute findings within the imaged lung bases. Heart size within normal limits. LIVER: Small area of focal fat within the left lobe adjacent to falciform ligament. No concerning lesion. GALLBLADDER AND BILIARY TREE: Status post cholecystectomy. No significant biliary ductal dilation. PANCREAS: No discrete mass or peripancreatic edema. SPLEEN: Normal size without focal cystic or solid mass. ADRENAL GLANDS: Unremarkable. KIDNEYS AND URETERS: Normal renal size and position. No hydronephrosis. No concerning lesion. PERITONEUM: Trace free fluid within the posterior cul-de-sac. No free air or abscess. RETROPERITONEUM: No retroperitoneal mass or pathologic fluid collection. BOWEL: Normal appendix medial to the cecum within right lower quadrant. Slightly prominent colonic fecal load. No bowel obstruction or significant bowel thickening. No focal inflammatory change. LYMPH NODES: No enlarged mesenteric or retroperitoneal lymph nodes. VESSELS: No acute findings. No abdominal aortic aneurysm. URINARY BLADDER: Underdistended. REPRODUCTIVE ORGANS: No pelvic mass or large adnexal cyst. Retroverted uterus again noted. ABDOMINAL WALL: No acute findings or significant hernia defect. BONES: Intact with no suspicious osseous lesion. CT/Abdomen/Pelvis W IV Cont ONLY IMPRESSION: Trace physiologic fluid within pelvis. Probable mild constipation, correlate clinically. Electronically Signed: Vernon Beckman MD at 0:26 EDT ,
[2022-08-09 22:49] VITALS: PULSE 89; O2SAT 99
--- NOTE | 2022-08-09 22:49 | EDS_ITS ---
HPI HPI - Female History of Present Illness Chief Complaint: Female C/O Narrative Narrative: -year-old female with history of depression and previous surgical history of cholecystectomy and tubal ligation. She states that over the past 3 days she has noticed intermittent pain in the right lower quadrant of her abdomen. She reports there is no excessive activity or trauma prior to the pain beginning. She states it was initially intermittent but today has been constant and more severe. She states there is also been bouts of nausea without vomiting today secondary to the pain. She denies any vaginal bleeding or discharge or concern for STD and denies any dysuria symptoms. However as the pain has been slowly worsening she presents for evaluation. [facility] Medical History GERD (gastroesophageal reflux disease) Home Medications fluticasone propionate 110 mcg/actuation HFA aerosol inhaler (Flovent HFA) 1 puff inhalation DAILY asthma 01/18/17 [History Last Taken 01/14/17 09:00] albuterol sulfate 90 mcg/actuation aerosol inhaler 1 puff inhalation Q6H PRN PRN Asthma 05/17/19 [History Last Taken Unknown] famotidine-Ca carb-mag hydrox 10 mg-800 mg-165 mg chewable tablet 1 ea PO PRN PRN Indigestion 08/27/19 [History Last Taken Unknown] ondansetron HCl 4 mg tablet 4 mg PO PRN PRN Nausea 03/28/20 [History Last Taken Unknown] Allergy/AdvReac Type Severity Reaction Status Date / Time paroxetine [From Paxil] Allergy Unknown Verified 08/09/22 22:29 citalopram [From Celexa] AdvReac Upset Verified 08/09/22 22:29 Stomach Surgical History History of cholecystectomy History of tubal ligation Social History Smoking Status: Current every day smoker tobacco type: cigarettes ROS ROS ED Constitutional Constitutional ED: Denies chills or fever(s) ENT ENT ED: Denies sore throat Cardiovascular Cardiovascular: Denies chest pain Respiratory/Chest Respiratory/Chest: Denies cough or dyspnea Gastrointestinal Gastrointestinal: Reports abdominal pain and nausea; Denies diarrhea or vomiting Genitourinary Genitourinary ED: Denies dysuria or hematuria Musculoskeletal Musculoskeletal: Denies myalgias Integumentary Denies rash Neurologic Neurologic: Denies headache(s) Psychiatric Psychiatric: Reports depression Hematologic/Lymphatic Hematologic/Lymphatic: Denies easy bleeding or easy bruising EXAM Physical Exam Const Vital Signs: 08/09/22 22:27 08/09/22 22:49 08/10/22 00:36 Temperature 97.9 F Temperature Source Temporal Pulse Rate 10 L 89 78 Respiratory Rate 16 16 Blood Pressure 153/90 H 116/88 H Blood Pressure Mean 111 97 Pulse Ox 99 99 100 Oxygen Delivery Method Room Air Room Air Room Air 08/10/22 01:07 Temperature Temperature Source Pulse Rate 76 Respiratory Rate 16 Blood Pressure 116/88 H Blood Pressure Mean Pulse Ox Oxygen Delivery Method Positive well nourished and well developed General Appearance ED: well developed Eyes PERRL and EOMs intact bilaterally Neck supple Resp normal respiratory effort and clear to auscultation bilaterally Cardio regular rate and regular rhythm Rate: other Other Details: Radial pulses are plus 2 out of 4 bilaterally they are equal and symmetric GI non-distended GI Narrative: Abdomen is soft and nondistended with normal active bowel sounds. There is pain with palpation in the right lower quadrant with voluntary guarding at the site. Positive heel strike but negative psoas and obturator signs. Auscultation: normoactive bowel sounds Palpation: soft Back/Spine no CVA tenderness Extremity normal to inspection Neuro oriented x3 and CN's II-XII intact bilaterally Sensorium / Orientation: alert Psych Psych Narrative: Patient has a depressed/flat affect Skin no rashes or lesions noted MDM MDM MDM Narrative Medical decision making narrative: Patient presented to the ER afebrile but reported worsening pain in the right lower quadrant. On exam she was guarding at this site and had positive heel strike so had concern for acute appendicitis. Basic blood work was obtained which revealed no clinically significant findings. CT scan revealed mild constipation in the right lower quadrant but the appendix was seen and is normal. There is a chance this could be ovarian in nature but the CAT scan does not see any large ovarian cyst. On repeat evaluation she is resting comfortably and her abdomen is soft and her guarding has resolved. Therefore do not feel there is need for an emergent ultrasound. Patient will be discharged as her work-up reveals no signs of acute infection or obstruction and she can see her family doctor and/or DESIGN MAINTENANCE ENGINEER to discuss further testing strategies if symptoms persist Lab Data Attestation: I reviewed the patient's lab results. Labs: Laboratory Results - last 24 hr 08/09/22 08/09/22 08/09/22 23:05 23:05 23:05 WBC 10.2 RBC 4.49 Hgb 14.2 Hct 42.0 MCV 93.5 MCH 31.6 MCHC 33.8 RDW Std Deviation 44.4 H RDW Coeff of Dora 12.9 Plt Count 392 MPV 9.4 Immature Gran % (Auto) 0.400 Neut % (Auto) 57.1 Lymph % (Auto) 31.0 [place] % (Auto) 7.1 Eos % (Auto) 3.9 Baso % (Auto) 0.5 Absolute Neuts (auto) 5.8 Absolute Lymphs (auto) 3.15 Nucleated RBC % 0 Sodium 142 Potassium 3.9 Chloride 111 H Carbon Dioxide 25.0 Anion Gap 6 BUN 13 Creatinine 0.74 Estim Creat Clear Calc 99.12 Est GFR (MDRD) Af Amer 117 Est GFR (MDRD) Non-Af 97 BUN/Creatinine Ratio 17.6 Glucose 100 Lactic Acid 1.1 Calcium 8.7 Urine Color Urine Clarity Urine pH Ur Specific [place] Urine Protein Urine Glucose (UA) Urine Ketones Urine Occult Blood Urine Nitrite Urine Bilirubin Urine Urobilinogen Ur Leukocyte Esterase Urine RBC Urine WBC Ur Squamous Epith Cells Urine Bacteria Urine Mucus Urine Test 08/09/22 23:20 WBC RBC Hgb Hct MCV MCH MCHC RDW Std Deviation RDW Coeff of Dora Plt Count MPV Immature Gran % (Auto) Neut % (Auto) Lymph % (Auto) [place] % (Auto) Eos % (Auto) Baso % (Auto) Absolute Neuts (auto) Absolute Lymphs (auto) Nucleated RBC % Sodium Potassium Chloride Carbon Dioxide Anion Gap BUN Creatinine Estim Creat Clear Calc Est GFR (MDRD) Af Amer Est GFR (MDRD) Non-Af BUN/Creatinine Ratio Glucose Lactic Acid Calcium Urine Color Yellow Urine Clarity Clear Urine pH 6.5 Ur Specific [place] 1.020 Urine Protein 15 H Urine Glucose (UA) Normal Urine Ketones 5 H Urine Occult Blood Negative Urine Nitrite Negative Urine Bilirubin Negative Urine Urobilinogen 1 H Ur Leukocyte Esterase 25 H Urine RBC 0 SEEN Urine WBC 0-5 SEEN Ur Squamous Epith Cells 0-5 SEEN Urine Bacteria RARE Urine Mucus RARE Urine Test Negative Radiography Diagnostic Testing: Clinical Impression(s) from Imaging Studies Abdomen/Pelvis CT 08/09/22 22:48 IMPRESSION: Trace physiologic fluid within pelvis. Probable mild constipation, correlate clinically. Electronically Signed: Vernon Beckman MD at 0:26 EDT , Discharge Plan Triage Chief Complaint: Female C/O ED Provider: Shaggy Salguero Dx/Rx/DC Orders Clinical Impression: Nonspecific abdominal pain Prescriptions: No Action fluticasone propionate [Flovent HFA] 1 INHALER inhaler 1 puff inhalation DAILY albuterol sulfate 1 PUFF inhaler 1 puff inhalation Q6H PRN PRN (Reason: Asthma) famotidine-Ca carb-mag hydrox 1 EACH tablet,chewable 1 ea PO PRN PRN (Reason: Indigestion) ondansetron HCl 4 MG tablet 4 mg PO PRN PRN (Reason: Nausea) Primary Care Provider: Donald Colon Referrals: Donald Colon MD [Primary Care Provider] - Activity Restrictions/Additional Instructions: Please also follow-up with your DESIGN MAINTENANCE ENGINEER for further evaluation and return to the ER should you have any further concerns Disposition Disposition: Home, Self Care Discharge Date/Time: 08/10/22 01:08
[2022-08-09] MEDS: 0.9% Normal Saline 1,000 ML 999 ML IV (23:04)
[2022-08-09 23:17] LABS: Absolute Lymphocyte Count 3.15 X10^3/uL (0.83-4.51); Absolute Neutrophil Count 5.8 X10^3/uL (2.0-7.7); Basophil# 0.05 X10^3/uL; Basophil% 0.5 % (0-1); Eosinophils% 3.9 % (0-5); Hemoglobin 14.2 g/dL (12.0-15.0); Lymphocyte # 3.15 X10^3/ul (0.83-4.51); Mean Corp Hgb Conc 33.8 g/dL (32-36); Mean Corpuscular Hgb 31.6 pg (27.0-32.0); Mean Corpuscular Volume 93.5 fL (81-99); Mean Platelet Vol. 9.4 fl (6.2-12.0); Monocyte# 0.72 X10^3/uL; Monocyte% 7.1 % (0-10); NRBC Flagged by Analyzer 0 % (0-5); Neutrophil % 57.1 % (47-70); Platelet Count 392 K/mm3 (150-450); RBC Distribution Width CV 12.9 % (11.6-14.6); RBC Distribution Width SD 44.4 fl (35.1-43.9); Red Blood Count 4.49 M/mm3 (4.2-5.4); White Blood Count 10.2 K/mm3 (4.4-11.0)
[2022-08-09 23:30] LABS: Anion Gap 6 (5-15); BUN 13 mg/dL (7-18); BUN/Creat Ratio 17.6 RATIO (10-20); Calcium,Total 8.7 mg/dL (8.5-10.1); Chloride 111 mmol/L (98-107); Creatinine, Serum 0.74 mg/dL (0.55-1.02); EST Glomerular Filtration Rate 97 mL/min (>60); Est Glom Filt Rate - Afr Amer 117 mL/min (>60); Estimated Creatinine Clearance 99.12 ml/min; Glucose 100 mg/dL (74-106); Potassium 3.9 mmol/L (3.5-5.1); Sodium Level 142 mmol/L (136-145)
[2022-08-09 23:30] LABS: Red Blood Cells-Urine 0 SEEN /hpf (0-5)
[2022-08-09 23:39] LABS: Lactic Acid 1.1 mmol/L (0.4-1.9)
[2022-08-10 00:02] LABS: Color, Urine Yellow (Yellow); Glucose, Dipstick Normal (Normal); Ketone-Dipstick 5 mg/dl (Negative); Leukocyte Esterase-Dipstick 25 /ul (Negative); Nitrite-Dipstick Negative (Negative); Occult Blood-Urine Negative /ul (Negative); Protein-Dipstick 15 mg/dl (Negative); Urine Bilirubin Dipstick Negative (Negative); Urine Clarity Clear (Clear); Urine Urobilinogen 1 mg/dl (Normal); Urine pH 6.5 (5.0 - 8.0)
[2022-08-10 00:06] LABS: Internal QC Validated? YES +Cl - CLEAR BKGD; Pregnancy, Urine Negative Negative
[2022-08-10 00:11] LABS: Bacteria RARE /hpf (None Seen); Mucous, Urine RARE /hpf (<or=2+); Squamous Epithelial Cells - UA 0-5 SEEN /hpf (5-10); White Blood Cells 0-5 SEEN /hpf (0-5)
[2022-08-10 00:36] VITALS: BP 116/88; PULSE 78; RESP 16; O2SAT 100
[2022-08-10 01:07] VITALS: BP 116/88; PULSE 76; RESP 16
== END 2022-08-10 01:08 | disposition home or self-care (01) ==
PROVIDERS: Emergency Provider Emergency Medicine; PCP Family Medicine; Visit Provider Emergency Medicine
DX: R10.31 Right lower quadrant pain (principal); R11.0 Nausea; F17.210 Nicotine dependence, cigarettes, uncomplicated; Z90.49 Acquired absence of other specified parts of digestive tract; Z98.51 Tubal ligation status
CPT/HCPCS: 74177; 80048; 81001; 81025; 83605; 85025; 96360; 96361; 99282; J7030; Q9967; A4216

== ENCOUNTER → 2022-10-11 | Outpatient (CLI) | payer MEDICAID, SELFPAY ==
[2022-10-24 19:27] LABS: HPV APTIMA, High Risk Negative (Negative)
== END | disposition home or self-care (01) ==
LOC: LABSPEC 10:07
PROVIDERS: PCP Family Medicine; Visit Provider Student in an Organized Health Care Education/Training Program
DX: Z12.4 Encounter for screening for malignant neoplasm of cervix (principal)
CPT/HCPCS: 87624; 88175; G0145